=== PATIENT | female | born 1995 | race Caucasian/White ===

== ENCOUNTER → 2017-10-06 | Outpatient (CLI) | payer SELFPAY ==
--- NOTE | 2017-10-06 15:59 | Diagnostic Imaging Report ---
PROCEDURE: US PELVIC (NON OB) TECHNIQUE: Multiple real-time grayscale images were obtained over the pelvis in various projections transabdominally. INDICATION: Pelvic pain. FINDINGS: The uterus measures 8.2 x 4.9 x 3.3 cm. Endometrium is 7 mm in thickness. No myometrial mass is identified. Right ovary measures 4.1 x 3.0 x 2.4 cm and the left ovary measures 4.4 x 2.3 x 3.2 cm. The left ovary does contain a 2.8 cm cyst. Trace free fluid is identified. Blood flow to both ovaries is seen. IMPRESSION: 2.8 cm left ovarian cyst. The study is otherwise unremarkable. Dictated by: Dictated on workstation # [id number]
== END ==
LOC: RAD 14:53
PROVIDERS: ATTEND Nurse Practitioner Primary Care
DX: N83.202 Unspecified ovarian cyst, left side (principal)
CPT/HCPCS: 76856

== ENCOUNTER 2018-03-02 18:11 | Emergency (ER) | payer SELFPAY ==
[~2018-03-02] VITALS: Ht 170.2 cm; Wt 77.1 kg
--- OUTSIDE RECORDS SUMMARY | 2018-03-02 18:28 | XMS REPORT ---
Author Author EARLENE SOLITARIO Organization [facility] Address [address] [place] [address] Care Team Providers Care Oceanography Professor Name Role Phone EARLENE SOLITARIO Unavailable PROBLEMS Type Condition ICD9-CM Code QGA08-LV Code Onset Dates Condition Status SNOMED Code Problem Abnormal menses N92.6 Active 993828845 Problem Irregular menstrual cycle N92.6 Active 25623567 Problem Mild episode of recurrent major depressive disorder F33.0 Active 787225591 Problem Dysthymic disorder F34.1 Active 76419914 ALLERGIES No Information ENCOUNTERS Encounter Location Date Diagnosis [facility] [address] [address] Jan, [facility] [address] [address] Jan, [facility] [address] [address] Jan, [facility] [address] [place] [id number] [place] [address] Jan, Mild episode of recurrent major depressive disorder F33.0 and Abnormal menses N92.6 [facility] [address] [place] [id number] [place] [address] 9030 Nov, Mild episode of recurrent major depressive disorder F33.0 [facility] [address] [address] Oct, Abnormal pelvic ultrasound R93.8 [facility] [address] [address] Oct, Pelvic pain R10.2 and Irregular menstrual cycle N92.6 [facility] [address] [place] [address] 30 Aug, 2017 Mild episode of recurrent major depressive disorder F33.0 [place] [address] [address] 16 Aug, 2017 Dysthymic disorder F34.1 [facility] [place] [address] [address] May, Ear pain, left H92.02 ; Vertigo R42 and Disorder of left eustachian tube H69.92 [place] [address] [address] 13 Apr, 2017 Encounter for Nexplanon removal Z30.46 [facility] [place] [address] [address] 02 Jan, 2017 Candidiasis of female genitalia B37.3 and Nausea R11.0 [place] [address] [address] 04 Oct, 2016 Epigastric pain R10.13 and Dysthymic disorder F34.1 [place] [address] [address] Jan, Dental examination Z01.20 [place] [address] [address] 08 Feb, 2016 Nexplanon insertion Z30.017 [facility] IN [place] [address] [address] 07 Jan, 2016 Enlarged lymph nodes R59.9 [place] [address] [address] Dec, Dysthymic disorder F34.1 [place] [address] [address] 20 Dec, 2015 Encounter for contraceptive management, unspecified Z30.9 ; Easy bruising R23.8 ; Screening for STD sexually transmitted disease Z11.3 and Well woman exam (no gynecological exam) Z00.00 [place] [address] [place] [address] 0[address] Dec, Dysthymic disorder F34.1 [place] [address] [place] [id number] [place] [address]23- 8894 Dec, Dysthymic disorder F34.1 [place] [address] [place] [id number] [place] [address] 16092- 0094 20 Nov, 2015 Dysthymic disorder F34.1 [place] [address] [place] [id number] [place] [address]40- 4114 13 Nov, 2015 Encounter to establish care Z76.89 ; Depression, unspecified depression type F32.9 ; Nightmares F51.5 ; Tooth pain K08.8 and High risk medication use Z79.899 [place] [address] [place] [id number] [place] [address] 64259- 2608 Nov, Dysthymic disorder F34.1 [place] [address] [place] [id number] [place] [address] 8[address]27- 0617 Oct, Dysthymic disorder F34.1 [place] [address] [place] [id number] [place] [address] 71473- 5772 Oct, Dysthymic disorder F34.1 [facility] [address] [place] [id number] [place] [address] Apr, Sore throat J02.9 and Generalized skin eruption due to drugs and medicaments taken internally L27.0 [facility] [address] [place] [id number] [place] [address] Apr, Swollen lymph nodes R59.9 ; Mononucleosis B27.90 and Strep pharyngitis J02.0 [facility] [address] [place] [id number] [place] [address] 10054 [address]5624 20 Apr, 2015 Acute pharyngitis J02.9 and Acute streptococcal pharyngitis J02.0 [place] [address] [place] [id number] [place] [id number]- 8227 Jan, Infection of skin of right ear lobe H60.01 IMMUNIZATIONS No Known Immunizations SOCIAL HISTORY Never Assessed REASON FOR VISIT f/uKalani cid ma PLAN OF CARE Activity Details Follow Up prn Reason: VITAL SIGNS Height 65.5 in 2018-01-26 Weight 179.6 lbs 2018-01-26 Heart Rate 95 bpm 2018-01-26 Respiratory Rate 20 2018-01-26 BMI 29.43 kg/m2 2018-01-26 Blood pressure systolic 98 mmHg 2018-01-26 Blood pressure diastolic 52 mmHg 2018-01-26 MEDICATIONS Medication Instructions Dosage Frequency Start Date End Date Duration Status 28-0.8 MG Orally Once a day 1 tablet 24h 30 day(s) Active RESULTS Name Result Date Reference Range TEST, URINE (IN HOUSE) 2018-01-26 RESULTS POSITIVE Lot # [id number] Control + Exp date 01 Aug 2019 PROCEDURES Procedure Date Ordered Result Body Site URINE TEST Jan 26, 2018 INSTRUCTIONS MEDICATIONS ADMINISTERED No Known Medications MEDICAL (GENERAL) HISTORY Type Description Date Medical History Asthma, exercise induced Medical History Multiple Suicide attempts. Last was 09/03/17 OD on Benadryl, Aleve and Zoloft. Voluntary admission to [facility] for THC Medical History Self harm by cutting Medical History Depression Surgical History No know Surgical history [facility]
--- OUTSIDE RECORDS SUMMARY | 2018-03-02 18:29 | XMS REPORT ---
Author Author MAI CAROLINA Organization [facility] Address [address] [place] [address] Care Team Providers Care Pipe Fitter Marine Name Role Phone MAI CAROLINA Unavailable PROBLEMS Type Condition ICD9-CM Code EOD64-IL Code Onset Dates Condition Status SNOMED Code Problem Abnormal menses N92.6 Active 795300042 Problem Irregular menstrual cycle N92.6 Active 92605758 Problem Mild episode of recurrent major depressive disorder F33.0 Active 560425686 Problem Dysthymic disorder F34.1 Active 75162441 ALLERGIES Substance Reaction Event Type Date Status Zithromax hives Drug Allergy Jan, Active ENCOUNTERS Encounter Location Date Diagnosis [facility] [address] [place] [id number] [place] [address] Jan, [facility] [address] [address] Jan, [facility] [address] [address] Jan, [facility] [address] [place] [id number] [place] [address]- 55[address] Jan, Mild episode of recurrent major depressive disorder F33.0 and Abnormal menses N92.6 [facility] [address] [place] [id number] [place] [address] 81501- 5409 Nov, Mild episode of recurrent major depressive disorder F33.0 [facility] [address] [address] Oct, Abnormal pelvic ultrasound R93.8 [facility] [address] [place] [id number] [place] [address] 32194- 3398 Oct, Pelvic pain R10.2 and Irregular menstrual cycle N92.6 [place] [address] [place] [id number] [place] [address]30- 38[address] Aug, Mild episode of recurrent major depressive disorder F33.0 [place] [address] [address] Aug, Dysthymic disorder F34.1 [facility] WALK IN [place] [address] [address] May, Ear pain, left H92.02 ; Vertigo R42 and Disorder of left eustachian tube H69.92 [place] [address] [address] 4[address] 13 Apr, 2017 Encounter for Nexplanon removal Z30.46 [facility] WALK IN [address] [address] Jan, Candidiasis of female genitalia B37.3 and Nausea R11.0 [place] [address] 8[address]86- 5687 Oct, Epigastric pain R10.13 and Dysthymic disorder F34.1 [place] [address] 36[address]- 6[address] Jan, Dental examination Z01.[address] [address]- [address] Jan, Nexplanon insertion Z30.017 [facility]ALK [place] [address] [address] Jan, Enlarged lymph nodes R59.9 [place] [address] 458[address]- 3[address] Dec, Dysthymic disorder F34.1 [place] [address] 86[address]- [address] Dec, Encounter for contraceptive management, unspecified Z30.9 ; Easy bruising R23.8 ; Screening for STD sexually transmitted disease Z11.3 and Well woman exam (no gynecological exam) Z00.00 [place] [address] [place] [id number] [place] [address] 39763- 2860 Dec, Dysthymic disorder F34.1 [place] [address] [place] [id number] [place] [address] 01776- 9424 12 Dec, 2015 Dysthymic disorder F34.1 [place] [address] [address]- [address] Nov, Dysthymic disorder F34.1 [place] [address] [place] [id number] [place] [address] 92998- 8581 13 Nov, 2015 Encounter to establish care Z76.89 ; Depression, unspecified depression type F32.9 ; Nightmares F51.5 ; Tooth pain K08.8 and High risk medication use Z79.899 [place] [address] 013[address]- 7881 Nov, Dysthymic disorder F34.1 [place] [address] [place] [id number] [place] [address] 82586- 5643 Oct, Dysthymic disorder F34.1 [place] [address] [place] [id number] [place] [address] 72750- 6994 Oct, Dysthymic disorder F34.1 [facility] [address] [place] [id number] [place] [address] 26962 -[address]97 Apr, Sore throat J02.9 and Generalized skin eruption due to drugs and medicaments taken internally L27.0 [facility] [address] [place] [id number] [place] [address]0202 Apr, Swollen lymph nodes R59.9 ; Mononucleosis B27.90 and Strep pharyngitis J02.0 [facility] [address] [place] [id number] [place] [address] 20 Apr, 2015 Acute pharyngitis J02.9 and Acute streptococcal pharyngitis J02.0 [facility] [address] [facility] [id number] [place] [address] Jan, Infection of skin of right ear lobe H60.01 IMMUNIZATIONS No Known Immunizations SOCIAL HISTORY Never Assessed REASON FOR VISIT PLAN OF CARE VITAL SIGNS MEDICATIONS Medication Instructions Dosage Frequency Start Date End Date Duration Status 28-0.8 MG Orally Once a day 1 tablet 24h 30 day(s) Active RESULTS No Results PROCEDURES No Known procedures INSTRUCTIONS MEDICATIONS ADMINISTERED No Known Medications MEDICAL (GENERAL) HISTORY Type Description Date Medical History Asthma, exercise induced Medical History Multiple Suicide attempts. Last was 09/03/17 OD on Benadryl, Aleve and Zoloft. Voluntary admission to [facility] for THC Medical History Self harm by cutting Medical History Depression Surgical History No know Surgical history Hospitalization History inpatient psych [facility] s/p SI 08/2017
--- OUTSIDE RECORDS SUMMARY | 2018-03-02 18:29 | XMS REPORT ---
Author Author EARLENE SOLITARIO Organization [facility] Address [address] [place] [address] Care Team Providers Care Social Psychologist Name Role Phone KASSI EARLENE Unavailable PROBLEMS Type Condition ICD9-CM Code QHQ11-QF Code Onset Dates Condition Status SNOMED Code Problem Irregular menstrual cycle N92.6 Active 02043229 Problem Mild episode of recurrent major depressive disorder F33.0 Active 876742541 Problem Dysthymic disorder F34.1 Active 52076342 ALLERGIES No Information ENCOUNTERS Encounter Location Date Diagnosis [place] [address] [address] Dec, [facility] [address] [address] Nov, Mild episode of recurrent major depressive disorder F33.0 [facility] [address] [address]- [address] Oct, Abnormal pelvic ultrasound R93.8 [place] [address] [place] [id number] [place] [address] 69245- 6436 Oct, Pelvic pain R10.2 and Irregular menstrual cycle N92.6 [facility] [address] [address] Aug, Mild episode of recurrent major depressive disorder F33.0 [place] [address] [address]- 2503 Aug, Dysthymic disorder F34.1 [facility] [address] [place] [id number] [place] [address] May, Ear pain, left H92.02 ; Vertigo R42 and Disorder of left eustachian tube H69.92 [place] [address] [place] [id number] [place] [address] 93639- 5197 13 Apr, 2017 Encounter for Nexplanon removal Z30.46 [facility] [address] [address] 02 Jan, 2017 Candidiasis of female genitalia B37.3 and Nausea R11.0 [place] [address] 21050- 5965 Oct, Epigastric pain R10.13 and Dysthymic disorder F34.1 [place] [address] 09863- 4735 Jan, Dental examination Z01.20 [place] [address] [address] 28[address] Jan, Nexplanon insertion Z30.017 [facility] [address] [address] Jan, Enlarged lymph nodes R59.9 [place] [address] 18200- 1082 Dec, Dysthymic disorder F34.1 [place] [address] 02257- [address]87 Dec, Encounter for contraceptive management, unspecified Z30.9 ; Easy bruising R23.8 ; Screening for STD sexually transmitted disease Z11.3 and Well woman exam (no gynecological exam) Z00.00 [place] [address] [place] [id number] [place] [address] 85282- 5119 Dec, Dysthymic disorder F34.1 [place] [address] 7[address]- 2729 Dec, Dysthymic disorder F34.1 [place] [address] [place] [id number] [place] [address] 80494- 3805 Nov, Dysthymic disorder F34.1 [place] [address] [place] [id number] [place] [address] 43136- 3988 13 Nov, 2015 Encounter to establish care Z76.89 ; Depression, unspecified depression type F32.9 ; Nightmares F51.5 ; Tooth pain K08.8 and High risk medication use Z79.899 [place] [address] [place] [id number] [place] [address] 43453- 3073 13 Nov, 2015 Dysthymic disorder F34.1 [place] [address] [place] [id number] [place] [address] 08931- 5654 Oct, Dysthymic disorder F34.1 [place] [address] 956[address]- 2969 Oct, Dysthymic disorder F34.1 [facility] [place] [address] [place] [id number] [place] [address] 40538 -2418 Apr, Sore throat J02.9 and Generalized skin eruption due to drugs and medicaments taken internally L27.0 [facility]ALK IN [place] [address] [address] [place] [id number] [place] [address]6727 -4160 Apr, Swollen lymph nodes R59.9 ; Mononucleosis B27.90 and Strep pharyngitis J02.0 [facility] [place] [address] [address] [place] [id number] [place] [address] 27198 -9315 Apr, Acute pharyngitis J02.9 and Acute streptococcal pharyngitis J02.0 [place] [address] [place] [id number] [place] [address] 17853- 1587 Jan, Infection of skin of right ear lobe H60.01 IMMUNIZATIONS No Known Immunizations SOCIAL HISTORY Never Assessed REASON FOR VISIT f/kevin Cazares RN PLAN OF CARE Activity Details Follow Up 4 Weeks Reason: VITAL SIGNS Height 65.5 in 2017-11-10 Weight 175.3 lbs 2017-11-10 Heart Rate 80 bpm 2017-11-10 Respiratory Rate 20 2017-11-10 BMI 28.72 kg/m2 2017-11-10 Blood pressure systolic 108 mmHg 2017-11-10 Blood pressure diastolic 60 mmHg 2017-11-10 MEDICATIONS Medication Instructions Dosage Frequency Start Date End Date Duration Status Zoloft 100 MG Orally Once a day 1 tablet 24h 13 Nov, 2015 30 days Active Flonase 50 MCG/ACT Nasally twice a day 1 spray in each nostril 12h 30 May, 2017 7 days Active RESULTS No Results PROCEDURES No Known procedures INSTRUCTIONS MEDICATIONS ADMINISTERED No Known Medications MEDICAL (GENERAL) HISTORY Type Description Date Medical History Asthma, exercise induced Medical History Multiple Suicide attempts. Last was 09/03/17 OD on Benadryl, Aleve and Zoloft. Voluntary admission to [facility] for THC Medical History Self harm by cutting Medical History Depression Hospitalization History inpatient psych [facility] s/p SI 08/2017
--- OUTSIDE RECORDS SUMMARY | 2018-03-02 18:29 | XMS REPORT ---
Author Author SIN SILVERMAN Organization [facility] Address [address] [place] [address] Care Team Providers Care Fur Cutting Machine Operator Name Role Phone SIN SILVERMAN Unavailable PROBLEMS Type Condition ICD9-CM Code HLO80-NF Code Onset Dates Condition Status SNOMED Code Problem Abnormal menses N92.6 Active 302073857 Problem Irregular menstrual cycle N92.6 Active 47386597 Problem Mild episode of recurrent major depressive disorder F33.0 Active 708989871 Problem Dysthymic disorder F34.1 Active 91464040 ALLERGIES No Information ENCOUNTERS Encounter Location Date Diagnosis [facility] [address] [address] Jan, [facility] [address] [address]69 Jan, [facility] [address] [address] Jan, [facility] [address] [place] [id number] [place] [address] 66703- 4866 Jan, Mild episode of recurrent major depressive disorder F33.0 and Abnormal menses N92.6 [facility] [address] [place] [id number] [place] [address] 70271- 1830 Nov, Mild episode of recurrent major depressive disorder F33.0 [facility] [address] [place] [id number] [place] [address] 31020- 7849 Oct, Abnormal pelvic ultrasound R93.8 [facility] [address] [address]- 6[address] Oct, Pelvic pain R10.2 and Irregular menstrual cycle N92.6 [facility] [address] 53351- [address] 30 Aug, 2017 Mild episode of recurrent major depressive disorder F33.0 [place] [address] 83460- 4913 16 Aug, 2017 Dysthymic disorder F34.1 [facility] [place] [address] 49[address] 30 May, 2017 Ear pain, left H92.02 ; Vertigo R42 and Disorder of left eustachian tube H69.92 [place] [address] 65270- 1526 13 Apr, 2017 Encounter for Nexplanon removal Z30.46 [facility] [place] [address] 90146 -9859 02 Jan, 2017 Candidiasis of female genitalia B37.3 and Nausea R11.0 [place] [address] 38131- 9428 04 Oct, 2016 Epigastric pain R10.13 and Dysthymic disorder F34.1 [place] [address] 97029- 9142 Jan, Dental examination Z01.20 [place] [address] 90554- 5973 08 Feb, 2016 Nexplanon insertion Z30.017 [facility] IN [place] [address] 72668 -5746 07 Jan, 2016 Enlarged lymph nodes R59.9 [place] [address] 31087- 5315 Dec, Dysthymic disorder F34.1 [place] [address] 85762- 2544 Dec, Encounter for contraceptive management, unspecified Z30.9 ; Easy bruising R23.8 ; Screening for STD sexually transmitted disease Z11.3 and Well woman exam (no gynecological exam) Z00.00 [place] [address] [place] [address] 66395- 0665 Dec, Dysthymic disorder F34.1 [place] [address] [place] [id number] [place] [address] 11491- 4896 Dec, Dysthymic disorder F34.1 [place] [address] [place] [id number] [place] [address] 72666- 8371 Nov, Dysthymic disorder F34.1 [place] [address] [place] [id number] [place] [address] 38404- 0478 13 Nov, 2015 Encounter to establish care Z76.89 ; Depression, unspecified depression type F32.9 ; Nightmares F51.5 ; Tooth pain K08.8 and High risk medication use Z79.899 [place] [address] [place] [id number] [place] [address] 07211- 9928 Nov, Dysthymic disorder F34.1 [place] [address] [place] [id number] [place] [address] 77666- 4897 Oct, Dysthymic disorder F34.1 [place] [address] [place] [id number] [place] [address] 50400- 1572 Oct, Dysthymic disorder F34.1 [facility] [place] [address] [place] [id number] [place] [address] 02068 -2048 Apr, Sore throat J02.9 and Generalized skin eruption due to drugs and medicaments taken internally L27.0 [facility] [address] [place] [id number] [place] [address]15 -8788 Apr, Swollen lymph nodes R59.9 ; Mononucleosis B27.90 and Strep pharyngitis J02.0 [facility] [address] [place] [id number] [place] [address] 74931 -0699 Apr, Acute pharyngitis J02.9 and Acute streptococcal pharyngitis J02.0 [place] [address] [place] [id number] [place] [address], [place] [address]- [address]83 Jan, Infection of skin of right ear lobe H60.01 IMMUNIZATIONS No Known Immunizations SOCIAL HISTORY Never Assessed REASON FOR VISIT Triage JStrasserRN PLAN OF CARE VITAL SIGNS Height 65.5 in 2018-02-01 Weight 177.6 lbs 2018-02-01 Temperature 97.9 degrees Fahrenheit 2018-02-01 Heart Rate 80 bpm 2018-02-01 Respiratory Rate 20 2018-02-01 BMI 29.10 kg/m2 2018-02-01 Blood pressure systolic 110 mmHg 2018-02-01 Blood pressure diastolic 68 mmHg 2018-02-01 MEDICATIONS Medication Instructions Dosage Frequency Start Date [...] Benadryl, Aleve and Zoloft. Voluntary admission to [facility] for THC Medical History Self harm by cutting Medical History Depression Surgical History No know Surgical history Hospitalization History inpatient psych [facility] s/p SI 08/2017
--- OUTSIDE RECORDS SUMMARY | 2018-03-02 18:29 | XMS REPORT ---
Author Author MAI CAROLINA Organization [facility] Address [address] [place] [address] Care Team Providers Care Combination Machine Tool Operator Name Role Phone MAI CAROLINA Unavailable PROBLEMS Type Condition ICD9-CM Code EXL68-SK Code Onset Dates Condition Status SNOMED Code Problem Abnormal menses N92.6 Active 444901547 Problem Irregular menstrual cycle N92.6 Active 49021955 Problem Mild episode of recurrent major depressive disorder F33.0 Active 312116496 Problem Dysthymic disorder F34.1 Active 39991457 ALLERGIES No Information ENCOUNTERS Encounter Location Date Diagnosis [facility] [id number] [place] [address]385[address] 8454 Jan, [facility] [address] [address] Jan, [facility] [address] [address] Jan, [facility] [id number] [place] [address] 12042- 8044 Jan, Mild episode of recurrent major depressive disorder F33.0 and Abnormal menses N92.6 [facility] [id number] [place] [address] 94808- 1620 Nov, Mild episode of recurrent major depressive disorder F33.0 [facility] [id number] [place] [address] 10036- 7760 Oct, Abnormal pelvic ultrasound R93.8 [facility] [id number] [place] [address] 37098- 5550 Oct, Pelvic pain R10.2 and Irregular menstrual cycle N92.6 [facility] [address] 20323[address] 4412 Aug, Mild episode of recurrent major depressive disorder F33.0 [place] [address] 6[address]96[address] 16 Aug, 2017 Dysthymic disorder F34.1 [facility] [place] [address] [address] May, Ear pain, left H92.02 ; Vertigo R42 and Disorder of left eustachian tube H69.92 [place] [address] 11950- 8931 13 Apr, 2017 Encounter for Nexplanon removal Z30.46 [facility] [address] [address]68 02 Jan, 2017 Candidiasis of female genitalia B37.3 and Nausea R11.[address] [address] 04 Oct, 2016 Epigastric pain R10.13 and Dysthymic disorder F34.1 [place] [address] 96084- 4407 26 Feb, 2016 Dental examination Z01.20 [place] [address] 67476- [address]34 08 Feb, 2016 Nexplanon insertion Z30.[address] [facility] [place] [address] 97942 [address]9038 07 Jan, 2016 Enlarged lymph nodes R59.9 [place] [address] 63675- 4617 Dec, Dysthymic disorder F34.1 [place] [address] 71050[address] 7905 Dec, Encounter for contraceptive management, unspecified Z30.9 ; Easy bruising R23.8 ; Screening for STD sexually transmitted disease Z11.3 and Well woman exam (no gynecological exam) Z00.00 [place] [address] [address] Dec, Dysthymic disorder F34.1 [place] [id number] [place] [address] 70265- 0030 Dec, Dysthymic disorder F34.1 [place] [id number] [place] [address] 97409- 4760 20 Nov, 2015 Dysthymic disorder F34.1 [place] [id number] [place] [address] 83348- 2904 13 Nov, 2015 Encounter to establish care Z76.89 ; Depression, unspecified depression type F32.9 ; Nightmares F51.5 ; Tooth pain K08.8 and High risk medication use Z79.899 [place] [id number] [place] [address] 47613- 1161 Nov, Dysthymic disorder F34.1 [place] [id number] [place] [address] 49663- 1127 Oct, Dysthymic disorder F34.1 [place] [address] [id number] [place] [address] 71702- 6969 Oct, Dysthymic disorder F34.1 [facility] [id number] [place] [address] 05533 -0346 Apr, Sore throat J02.9 and Generalized skin eruption due to drugs and medicaments taken internally L27.0 [facility] [id number] [place] [address] 43773 -1324 Apr, Swollen lymph nodes R59.9 ; Mononucleosis B27.90 and Strep pharyngitis J02.0 [facility] [address] [place] [address] 41611 -3529 Apr, Acute pharyngitis J02.9 and Acute streptococcal pharyngitis J02.0 [place] [id number] [place] [address] 99426- 2558 Jan, Infection of skin of right ear lobe H60.01 IMMUNIZATIONS No Known Immunizations SOCIAL HISTORY Never Assessed REASON FOR VISIT OB HX PLAN OF CARE VITAL SIGNS MEDICATIONS No Known Medications RESULTS No Results PROCEDURES No Known procedures INSTRUCTIONS MEDICATIONS ADMINISTERED No Known Medications MEDICAL (GENERAL) HISTORY Type Description Date Medical History Asthma, exercise induced Medical History Multiple Suicide attempts. Last was 09/03/17 OD on Benadryl, Aleve and Zoloft. Voluntary admission to [facility] for THC Medical History Self harm by cutting Medical History Depression Surgical History No know Surgical history Hospitalization History inpatient psych [facility] s/p SI 08/2017
--- OUTSIDE RECORDS SUMMARY | 2018-03-02 18:29 | XMS REPORT ---
Author Author MARY DE LUNA Organization [facility] Address [address] [place] [address] Care Team Providers Care Photo Intern Name Role Phone MARY DE LUNA Unavailable PROBLEMS Type Condition ICD9-CM Code TKP64-DL Code Onset Dates Condition Status SNOMED Code Problem Irregular menstrual cycle N92.6 Active 66646290 Problem Mild episode of recurrent major depressive disorder F33.0 Active 536517729 Problem Dysthymic disorder F34.1 Active 90494953 ALLERGIES No Information ENCOUNTERS Encounter Location Date Diagnosis [place] [id number] [place] [id number] [place] [address] 13211- 7486 Dec, [facility] [id number] [place] [address] 29732- 6385 Nov, Mild episode of recurrent major depressive disorder F33.0 [facility] [id number] [place] [address] 18449- 8929 Oct, Abnormal pelvic ultrasound R93.8 [place] [address] [place] [id number] [place] [address] 51798- 9834 Oct, Pelvic pain R10.2 and Irregular menstrual cycle N92.6 [facility] [id number] [place] [address] 14359- 9906 Aug, Mild episode of recurrent major depressive disorder F33.0 [facility] [id number] [place] [address] 61844- 1709 Aug, Dysthymic disorder F34.1 [facility] [address] [place] [address] 37743 -6135 May, Ear pain, left H92.02 ; Vertigo R42 and Disorder of left eustachian tube H69.92 [place] [address] [place] [id number] [place] [address] 35466- 1348 13 Apr, 2017 Encounter for Nexplanon removal Z30.46 [facility] [address] 6[address]2309 02 Jan, 2017 Candidiasis of female genitalia B37.3 and Nausea R11.0 [place] [address] 80795- 0374 Oct, Epigastric pain R10.13 and Dysthymic disorder F34.1 [place] [address] 40845- 0193 Jan, Dental examination Z01.20 [place] [address] 00558- 1306 Jan, Nexplanon insertion Z30.017 [facility] [address] 31428 [address]8374 Jan, Enlarged lymph nodes R59.9 [place] [address] 77254- 3112 Dec, Dysthymic disorder F34.1 [place] [address] 31667- 3490 Dec, Encounter for contraceptive management, unspecified Z30.9 ; Easy bruising R23.8 ; Screening for STD sexually transmitted disease Z11.3 and Well woman exam (no gynecological exam) Z00.00 [place] [address] [address] [id number] [place] [address] 75109- 2311 Dec, Dysthymic disorder F34.1 [place] [address] 66254- 6934 Dec, Dysthymic disorder F34.1 [place] [address] [place] [id number] [place] [address] 56096- 9082 Nov, Dysthymic disorder F34.1 [place] [address] [place] [address] [id number] [place] [address] 66898- 9031 13 Nov, 2015 Encounter to establish care Z76.89 ; Depression, unspecified depression type F32.9 ; Nightmares F51.5 ; Tooth pain K08.8 and High risk medication use Z79.899 [place] [address] [place] [id number] [place] [address] 77740- 3856 13 Nov, 2015 Dysthymic disorder F34.1 [place] [address] [place] [id number] [place] [address] 13497- 4994 Oct, Dysthymic disorder F34.1 [place] [address] 38560- 0438 Oct, Dysthymic disorder F34.1 [facility] [place] [address] [place] [address] [id number] [place] [address] 87040 -9879 Apr, Sore throat J02.9 and Generalized skin eruption due to drugs and medicaments taken internally L27.0 [facility] [place] [address] [id number] [place] [address] 95170 -8110 Apr, Swollen lymph nodes R59.9 ; Mononucleosis B27.90 and Strep pharyngitis J02.0 [facility] [place] [address] [place] [address] [id number] [place] [address] 03919 -2506 Apr, Acute pharyngitis J02.9 and Acute streptococcal pharyngitis J02.0 [place] [address] [place] [id number] [place] [address] 80529- 6925 Jan, Infection of skin of right ear lobe H60.01 IMMUNIZATIONS No Known Immunizations SOCIAL HISTORY Never Assessed REASON FOR VISIT Follow up US PLAN OF CARE VITAL SIGNS MEDICATIONS Unknown Medications RESULTS No Results PROCEDURES No Known procedures INSTRUCTIONS MEDICATIONS ADMINISTERED No Known Medications MEDICAL (GENERAL) HISTORY Type Description Date Medical History Asthma, exercise induced Medical History Multiple Suicide attempts. Last was 09/03/17 OD on Benadryl, Aleve and Zoloft. Voluntary admission to [facility] for THC Medical History Self harm by cutting Medical History Depression Hospitalization History inpatient psych [facility] s/p SI 08/2017
--- OUTSIDE RECORDS SUMMARY | 2018-03-02 18:29 | XMS REPORT ---
Author Author MARY DE LUNA Organization [facility] Address [address] [place] [address] Care Team Providers Care Bone Density Technician Name Role Phone MARY DE LUNA Unavailable PROBLEMS Type Condition ICD9-CM Code [id number] Code Onset Dates Condition Status SNOMED Code Problem Irregular menstrual cycle N92.6 Active 65462631 Problem Mild episode of recurrent major depressive disorder F33.0 Active 909244193 Problem Dysthymic disorder F34.1 Active 94716942 ALLERGIES Substance Reaction Event Type Date Status Zithromax hives Drug Allergy Oct, Active ENCOUNTERS Encounter Location Date Diagnosis [facility] [address] [place] [place] [id number] [place] [address] 44897- 9921 Dec, [facility] [address] [id number] [place] [address] 19403- 4744 Nov, Mild episode of recurrent major depressive disorder F33.0 [facility] [address] [id number] [place] [address] 97171- 5046 Oct, Abnormal pelvic ultrasound R93.8 [facility] [address] [id number] [place] [address] 04641- 0913 Oct, Pelvic pain R10.2 and Irregular menstrual cycle N92.6 [facility] [address] [id number] [place] [address] 68376- 2589 Aug, Mild episode of recurrent major depressive disorder F33.0 [facility] [address] [id number] [place] [address] 90100- 1959 Aug, Dysthymic disorder F34.1 [facility] [address] [place] [address] 61519 -3139 May, Ear pain, left H92.02 ; Vertigo R42 and Disorder of left eustachian tube H69.92 [place] [address] 84468- 3331 13 Apr, 2017 Encounter for Nexplanon removal Z30.46 [facility] [address] 80408 -4860 Jan, Candidiasis of female genitalia B37.3 and Nausea R11.0 [place] [address] 86093- 0682 Oct, Epigastric pain R10.13 and Dysthymic disorder F34.1 [place] [address] 59838- 7737 Jan, Dental examination Z01.20 [place] [address] 71195- 4956 Jan, Nexplanon insertion Z30.017 [facility] [place] [address] 29267 -4567 Jan, Enlarged lymph nodes R59.9 [place] [address] 00070- 9313 Dec, Dysthymic disorder F34.1 [place] [address] 98411- 5016 Dec, Encounter for contraceptive management, unspecified Z30.9 ; Easy bruising R23.8 ; Screening for STD sexually transmitted disease Z11.3 and Well woman exam (no gynecological exam) Z00.00 [place] [address] 73828- 1039 Dec, Dysthymic disorder F34.1 [place] [address] 58547- 3798 Dec, Dysthymic disorder F34.1 [place] [address] 27678- 0147 Nov, Dysthymic disorder F34.1 [facility] [address] [place] [id number] [place] [address] 74938- 7986 Nov, Encounter to establish care Z76.89 ; Depression, unspecified depression type F32.9 ; Nightmares F51.5 ; Tooth pain K08.8 and High risk medication use Z79.899 [place] [address] 88456- 5689 Nov, Dysthymic disorder F34.1 [place] [address] 22661- 5104 Oct, Dysthymic disorder F34.1 [place] [address] 23937- 5458 Oct, Dysthymic disorder F34.1 [facility] [address] [place] [id number] [place] [address] 83457 -1366 Apr, Sore throat J02.9 and Generalized skin eruption due to drugs and medicaments taken internally L27.0 [facility] [address] [id number] [place] [address] 73416 -3148 Apr, Swollen lymph nodes R59.9 ; Mononucleosis B27.90 and Strep pharyngitis J02.0 [facility] [address] [place] [id number] [place] [address] 08841 -1005 Apr, Acute pharyngitis J02.9 and Acute streptococcal pharyngitis J02.0 [facility] [address] [place] [id number] [place] [address] 40027- 4769 Jan, Infection of skin of right ear lobe H60.01 IMMUNIZATIONS No Known Immunizations SOCIAL HISTORY Never Assessed REASON FOR VISIT Stomach pain, left lower quadrant, reports has been this way for a few years[facility] Activity Details Follow Up prn Reason: VITAL SIGNS Height 65.5 in 2017-10-02 Weight 169.1 lbs 2017-10-02 Temperature 97.6 degrees Fahrenheit 2017-10-02 Heart Rate 78 bpm 2017-10-02 Respiratory Rate 18 2017-10-02 BMI 27.71 kg/m2 2017-10-02 Blood pressure systolic 102 mmHg 2017-10-02 Blood pressure diastolic 64 mmHg 2017-10-02 MEDICATIONS Medication Instructions Dosage Frequency Start Date End Date Duration Status Zoloft 100 MG Orally Once a day 1 tablet 24h 13 Nov, 2015 30 days Active Flonase 50 MCG/ACT Nasally twice a day 1 spray in each nostril 12h 30 May, 2017 07 days Active RESULTS No Results PROCEDURES Procedure Date Ordered Result Body Site No Charge Oct 02, 2017 URINALYSIS, AUTO, W/O SCOPE Oct 02, 2017 ASSAY THYROID STIM HORMONE Oct 02, 2017 COMPLETE CBC W/AUTO DIFF WBC Oct 02, 2017 VENIPUNCT, ROUTINE* Oct 02, 2017 INSTRUCTIONS MEDICATIONS ADMINISTERED No Known Medications MEDICAL (GENERAL) HISTORY Type Description Date Medical History Asthma, exercise induced Medical History Multiple Suicide attempts. Last was 09/03/17 OD on Benadryl, Aleve and Zoloft. Voluntary admission to [facility] for THC Medical History Self harm by cutting Medical History Depression Hospitalization History inpatient psych [facility] s/p SI 08/2017
--- OUTSIDE RECORDS SUMMARY | 2018-03-02 18:30 | XMS REPORT ---
Author TESSIE Arambula Organization [employer] Address Unknown Phone Unavailable Care Team Providers Care Circus Roustabout Name Role Phone TESSIE BOGGS CP Unavailable Allergies No Known Allergies Problems Problem Type Condition Code Onset Dates Condition Status Assessment Dysthymic disorder F34.1 Active Problem Dysthymic disorder F34.1 Active Medications No Known Medications Procedures Procedure Coding System Code Date Psychotherapy, patient &/family, 30 minutes, established patient CPT-4 07830 Dec 13, 2015 Results No Known Results Summary Purpose [employer] Submission
--- OUTSIDE RECORDS SUMMARY | 2018-03-02 18:30 | XMS REPORT ---
Author Author RENEE SINGH Organization [employer] Address Unknown Phone Unavailable Care Team Providers Care Sawmill Hand Name Role Phone RENEE SINGH CP Unavailable Allergies, Adverse Reactions, Alerts Substance Reaction Event Type Zithromax hives Drug Allergy Problems Problem Type Condition Code Onset Dates Condition Status Assessment Infection of skin of right ear lobe H60.01 Active Medications Medication Code System Code Instructions Start Date End Date Status Dosage Bactrim DS [facility] [address]-34 800-160 MG Orally Twice a day Mar 01, 2015 Mar 11, 2015 1 tablet Bactroban [facility] [address]-78 2 % Externally Three times a day Mar 01, 2015 1 application to affected area Procedures Procedure Coding System Code Date Office Visit, New Pt., Level 3 CPT-4 27543 Mar 01, 2015 ROCEPHIN 1 GM (IM) CPT-4 J0696 Mar 01, 2015 CULTURE BACTERIA ANAEROBIC CPT-4 20441 Mar 01, 2015 THER/PROPH/DIAG INJ, SC/IM CPT-4 95711 Mar 01, 2015 Vital Signs Date/Time: Mar 01, 2015 Temperature 99.3 F BMIPercentile 81.17 % Weight 151.5 lbs Height 65.5 in BMI 24.82 Index Blood Pressure Diastolic 80 mmHg Blood Pressure Systolic 120 mmHg Cardiac Monitoring Heart Rate 88 bpm Wt Percentile 85.27 % Ht Percentile 69.2 % Results No Known Results Summary Purpose [employer] Submission
--- OUTSIDE RECORDS SUMMARY | 2018-03-02 18:30 | XMS REPORT ---
Author Author LATOSHA PAULINO Organization [facility] Address [address] [place] [address] Care Team Providers Care Marketing Programs Specialist Name Role Phone LATOSHA PAULINO Unavailable PROBLEMS Type Condition ICD9-CM Code FKI31-IU Code Onset Dates Condition Status SNOMED Code Problem Dysthymic disorder F34.1 Active 00700113 ALLERGIES Substance Reaction Event Type Date Status Zithromax hives Drug Allergy May, Active ENCOUNTERS Encounter Location Date Diagnosis [address] [address] Aug, [address] 87[address]- 3[address] Aug, Dysthymic disorder F34.1 [facility] [address] [address]61 May, Ear pain, left H92.02 ; Vertigo R42 and Disorder of left eustachian tube H69.[address] 61552- 1408 Apr, Encounter for Nexplanon removal Z30.46 [facility] [address] 237[address] Jan, Candidiasis of female genitalia B37.3 and Nausea R11.[address] 71838- 7659 Oct, Epigastric pain R10.13 and Dysthymic disorder F34.[address] 72082- 1290 Jan, Dental examination Z01.[id number] [place] [address] 97678- 4742 08 Feb, 2016 Nexplanon insertion Z30.017 [facility] [address] [place] [id number] [place] [address] 56405 -5090 Jan, Enlarged lymph nodes R59.9 [facility] [address] [place] [id number] [place] [address] 34924- 8465 Dec, Dysthymic disorder F34.1 [facility] [address] [place] [address] [id number] [place] [address] 39023- 4949 Dec, Encounter for contraceptive management, unspecified Z30.9 ; Easy bruising R23.8 ; Screening for STD sexually transmitted disease Z11.3 and Well woman exam (no gynecological exam) Z00.00 [place] [address] [place] [id number] [place] [address] 58488- 2728 Dec, Dysthymic disorder F34.1 [place] [address] [place] [id number] [place] [address] 75141- 7525 Dec, Dysthymic disorder F34.1 [place] [address] [place] [id number] [place] [address] 25775- 2607 Nov, Dysthymic disorder F34.1 [place] [address] [place] [id number] [place] [address] 17756- 2262 13 Nov, 2015 Encounter to establish care Z76.89 ; Depression, unspecified depression type F32.9 ; Nightmares F51.5 ; Tooth pain K08.8 and High risk medication use Z79.899 [facility] [address] [place] [address] 74176- 1775 Nov, Dysthymic disorder F34.1 [place] [address] [place] [id number] [place] [address] 57554- 9720 Oct, Dysthymic disorder F34.1 [place] [address] [place] [id number] [place] [address] 30932- 5095 Oct, Dysthymic disorder F34.1 [facility] [address] [facility] [id number] [address] Apr, Sore throat J02.9 and Generalized skin eruption due to drugs and medicaments taken internally L27.0 [facility] [address] [place] [id number] [address] Apr, Swollen lymph nodes R59.9 ; Mononucleosis B27.90 and Strep pharyngitis J02.0 [facility] [address] [place] [id number] [address] Apr, Acute pharyngitis J02.9 and Acute streptococcal pharyngitis J02.0 [facility] [address] [id number] [address] Jan, Infection of skin of right ear lobe H60.01 IMMUNIZATIONS No Known Immunizations SOCIAL HISTORY Never Assessed REASON FOR VISIT left ear feels full. when she turns her head...gets dizzy. been like this for a few weeks now. [email or web address] PLAN OF CARE Activity Details Follow Up prn Reason: VITAL SIGNS Height 65.5 in 2017-05-30 Weight 177.6 lbs 2017-05-30 Temperature 97.8 degrees Fahrenheit 2017-05-30 Heart Rate 80 bpm 2017-05-30 Respiratory Rate 20 2017-05-30 BMI 29.10 kg/m2 2017-05-30 Blood pressure systolic 106 mmHg 2017-05-30 Blood pressure diastolic 68 mmHg 2017-05-30 MEDICATIONS Medication Instructions Dosage Frequency Start Date End Date Duration Status Flonase 50 MCG/ACT Nasally twice a day 1 spray in each nostril 12h 30 May, 2017 07 days Active Zoloft 50 mg Orally Once a day 1 tablet 24h 13 Nov, 2015 Active Omeprazole 20 mg Orally Once a day, ac 1 capsule Oct, 30 day( s) Not-Taking RESULTS No Results PROCEDURES No Known procedures INSTRUCTIONS MEDICATIONS ADMINISTERED No Known Medications MEDICAL (GENERAL) HISTORY Type Description Date Medical History Asthma, exercise induced
--- OUTSIDE RECORDS SUMMARY | 2018-03-02 18:30 | XMS REPORT ---
Author TESSIE Arambula Organization [employer] Address Unknown Phone Unavailable Care Team Providers Care Haulage Engine Operator Name Role Phone TESSIE BOGGS CP Unavailable Allergies No Known Allergies Problems Problem Type Condition Code Onset Dates Condition Status Assessment Dysthymic disorder F34.1 Active Problem Dysthymic disorder F34.1 Active Medications No Known Medications Procedures Procedure Coding System Code Date Psychotherapy, patient &/family, 45 minutes, established patient CPT-4 11018 Oct 30, 2015 Results No Known Results Summary Purpose [employer] Submission
--- OUTSIDE RECORDS SUMMARY | 2018-03-02 18:30 | XMS REPORT ---
Author Author TESSIE BOGGS Organization [employer] Address Unknown Phone Unavailable Care Team Providers Care Spool Salvager Name Role Phone TESSIE BOGGS CP Unavailable Allergies No Known Allergies Problems Problem Type Condition Code Onset Dates Condition Status Assessment Dysthymic disorder F34.1 Active Problem Dysthymic disorder F34.1 Active Medications No Known Medications Procedures Procedure Coding System Code Date Psychotherapy, patient &/family, 45 minutes, established patient CPT-4 22816 Oct 17, 2015 Results No Known Results Summary Purpose eClinicalWorks Submission
--- OUTSIDE RECORDS SUMMARY | 2018-03-02 18:30 | XMS REPORT ---
Author Author TESSIE BOGGS Organization [facility] Address [address] [place] [address] Care Team Providers Care Manager Operations And Procurement Name Role Phone TESSIE BOGGS Unavailable PROBLEMS Type Condition ICD9-CM Code EVF26-DM Code Onset Dates Condition Status SNOMED Code Problem Dysthymic disorder F34.1 Active 97291383 Assessment Dysthymic disorder F34.1 Nov, Active 56822474 ALLERGIES No Known Allergies SOCIAL HISTORY No smoking Hx information available PLAN OF CARE VITAL SIGNS MEDICATIONS No Known Medications RESULTS No Results PROCEDURES Procedure Date Ordered Related Diagnosis Body Site Psychotherapy, patient &/family, 30 minutes, established patient Nov 14, 2015 IMMUNIZATIONS No Known Immunizations
--- OUTSIDE RECORDS SUMMARY | 2018-03-02 18:30 | XMS REPORT ---
Author Author SIN SILVERMAN Organization [employer] Address Unknown Phone Unavailable Care Team Providers Care Needle Loom Tender Name Role Phone SIN SILVERMAN Unavailable Allergies No Known Allergies Problems Problem Type Condition Code Onset Dates Condition Status Assessment Dysthymic disorder F34.1 Active Problem Dysthymic disorder F34.1 Active Medications Medication Code System Code Instructions Start Date End Date Status Dosage Zoloft [facility] [address]-26 50 mg Orally Once a day Nov 14, 2015 1 tablet Results No Known Results Summary Purpose eClinicalWorks Submission
--- OUTSIDE RECORDS SUMMARY | 2018-03-02 18:30 | XMS REPORT ---
Author TESSIE Arambula Organization [employer] Address Unknown Phone Unavailable Care Team Providers Care Reinforced Concrete Inspector Name Role Phone TESSIE BOGGS CP Unavailable Allergies No Known Allergies Problems Problem Type Condition Code Onset Dates Condition Status Assessment Dysthymic disorder F34.1 Active Problem Dysthymic disorder F34.1 Active Medications No Known Medications Procedures Procedure Coding System Code Date Psychotherapy, patient &/family, 30 minutes, established patient CPT-4 00004 Dec 27, 2015 Results No Known Results Summary Purpose eClinicalWorks Submission
--- OUTSIDE RECORDS SUMMARY | 2018-03-02 18:30 | XMS REPORT ---
Author Author EARLENE SOLITARIO Organization [facility] Address [address] [place] [address] Care Team Providers Care History Department Chair Name Role Phone EARLENE SOLITARIO Unavailable PROBLEMS Type Condition ICD9-CM Code MXK16-PO Code Onset Dates Condition Status SNOMED Code Problem Irregular menstrual cycle N92.6 Active 23712485 Problem Mild episode of recurrent major depressive disorder F33.0 Active 603670094 Problem Dysthymic disorder F34.1 Active 56403995 ALLERGIES Substance Reaction Event Type Date Status Zithromax hives Drug Allergy Aug, Active ENCOUNTERS Encounter Location Date Diagnosis [facility] [address] [address] Dec, [facility] [address] [place] [id number] [place] [address] Nov, Mild episode of recurrent major depressive disorder F33.0 [facility] [id number] [place] [address] Oct, Abnormal pelvic ultrasound R93.8 [facility] [id number] [place] [address] Oct, Pelvic pain R10.2 and Irregular menstrual cycle N92.6 [facility] [id number] [place] [address] Aug, Mild episode of recurrent major depressive disorder F33.0 [facility] [id number] [place] [address] Aug, Dysthymic disorder F34.1 [facility] [id number] [place] [address] May, Ear pain, left H92.02 ; Vertigo R42 and Disorder of left eustachian tube H69.92 [place] [id number] [place] [address] 13 Apr, 2017 Encounter for Nexplanon removal Z30.46 [facility] [address] [address] 02 Jan, 2017 Candidiasis of female genitalia B37.3 and Nausea R11.0 [place] [address] [address] Oct, Epigastric pain R10.13 and Dysthymic disorder F34.1 [place] [address] [address] Jan, Dental examination Z01.20 [place] [address] [address] Jan, Nexplanon insertion Z30.017 [facility] [address] [address] 07 Jan, 2016 Enlarged lymph nodes R59.9 [place] [address] [address] Dec, Dysthymic disorder F34.1 [place] [address] [address] Dec, Encounter for contraceptive management, unspecified Z30.9 ; Easy bruising R23.8 ; Screening for STD sexually transmitted disease Z11.3 and Well woman exam (no gynecological exam) Z00.00 [place] [address] [address] Dec, Dysthymic disorder F34.1 [place] [address] [address] Dec, Dysthymic disorder F34.1 [place] [address] [address] Nov, Dysthymic disorder F34.1 [facility] [address] [place] [address] 13 Nov, 2015 Encounter to establish care Z76.89 ; Depression, unspecified depression type F32.9 ; Nightmares F51.5 ; Tooth pain K08.8 and High risk medication use Z79.899 [facility] [id number] [place] [address]- [address] 13 Nov, 2015 Dysthymic disorder F34.1 [facility] [id number] [place] [address] Oct, Dysthymic disorder F34.1 [place] [id number] [place] [address] Oct, Dysthymic disorder F34.1 [facility] [id number] [place] [address] Apr, Sore throat J02.9 and Generalized skin eruption due to drugs and medicaments taken internally L27.0 [facility] [id number] [place] [address] Apr, Swollen lymph nodes R59.9 ; Mononucleosis B27.90 and Strep pharyngitis J02.0 [facility] [id number] [place] [address] Apr, Acute pharyngitis J02.9 and Acute streptococcal pharyngitis J02.0 [facility] [id number] [place] [address]60- 285[address] Jan, Infection of skin of right ear lobe H60.01 IMMUNIZATIONS No Known Immunizations SOCIAL HISTORY Never Assessed REASON FOR VISIT Pyschiatric intake. Debora WEST PLAN OF CARE Activity Details Follow Up 6 Weeks Reason: VITAL SIGNS Height 65.5 in 2017-09-29 Weight 168 lbs 2017-09-29 Heart Rate 76 bpm 2017-09-29 Respiratory Rate 20 2017-09-29 BMI 27.53 kg/m2 2017-09-29 Blood pressure systolic 102 mmHg 2017-09-29 Blood pressure diastolic 66 mmHg 2017-09-29 MEDICATIONS Medication Instructions Dosage Frequency Start Date End Date Duration Status Zoloft 100 MG Orally Once a day 1 tablet 24h 13 Nov, 2015 30 days Active Omeprazole 20 mg Orally Once a day, ac 1 capsule Oct, 30 day( s) Not-Taking Flonase 50 MCG/ACT Nasally twice a day 1 spray in each nostril 12h 30 May, 2017 07 days Active RESULTS No Results PROCEDURES No Known procedures INSTRUCTIONS MEDICATIONS ADMINISTERED No Known Medications MEDICAL (GENERAL) HISTORY Type Description Date Medical History Asthma, exercise induced Medical History Multiple Suicide attempts. Last was 09/03/17 OD on Benadryl, Aleve and Zoloft. [facility] Medical History Self harm by cutting Medical History Depression Hospitalization History inpatient psych [facility] s/p SI 08/2017
--- OUTSIDE RECORDS SUMMARY | 2018-03-02 18:30 | XMS REPORT ---
Author Author BIJAL SINGH [facility] Address [address] [place] [address] Care Team Providers Care Wood Heel Flap Trimmer Name Role Phone BIJAL SINGH Unavailable PROBLEMS Type Condition ICD9-CM Code [id number] Code Onset Dates Condition Status SNOMED Code Problem Dysthymic disorder F34.1 Active 71157932 ALLERGIES Substance Reaction Event Type Date Status Zithromax hives Drug Allergy Apr, Active ENCOUNTERS Encounter Location Date Diagnosis [facility] [address] [place] [address] May, Ear pain, left H92.02 ; Vertigo R42 and Disorder of left eustachian tube H69.[address] [address] Apr, Encounter for Nexplanon removal Z30.46 [facility] [address] [address] Jan, Candidiasis of female genitalia B37.3 and Nausea R11.[address] [address] Oct, Epigastric pain R10.13 and Dysthymic disorder F34.[address] [address] Jan, Dental examination Z01.[address] [address] 08 Feb, 2016 Nexplanon insertion Z30.017 [facility] [address] [place] [address] 07 Jan, 2016 Enlarged lymph nodes R59.9 [place] [address] [place] [address] 86[address] Dec, Dysthymic disorder F34.1 [place] [address] [place] [address] [id number] [place] [address] Dec, Encounter for contraceptive management, unspecified Z30.9 ; Easy bruising R23.8 ; Screening for STD sexually transmitted disease Z11.3 and Well woman exam (no gynecological exam) Z00.00 [place] [address] [place] [address] [id number] [place] [address] 6[address] Dec, Dysthymic disorder F34.1 [place] [address] [place] [address] [id number] [place] [address] 96299- 9841 Dec, Dysthymic disorder F34.1 [place] [address] [address] [id number] [place] [address] 20848- 1829 Nov, Dysthymic disorder F34.1 [place] [address] [place] [address] [id number] [place] [address]28[address] Nov, Encounter to establish care Z76.89 ; Depression, unspecified depression type F32.9 ; Nightmares F51.5 ; Tooth pain K08.8 and High risk medication use Z79.899 [place] [address] [id number] [place] [address] Nov, Dysthymic disorder F34.1 [place] [address] [place] [address] [id number] [place] [address] 8[address]62- 9965 Oct, Dysthymic disorder F34.1 [place] [address] [address] [id number] [place] [address] 88119- 7167 Oct, Dysthymic disorder F34.1 [facility] [address] [place] [address] 28 Apr, 2015 Sore throat J02.9 and Generalized skin eruption due to drugs and medicaments taken internally L27.0 [facility] [id number] [place] [address] Apr, Swollen lymph nodes R59.9 ; Mononucleosis B27.90 and Strep pharyngitis J02.0 [facility] [address] [facility] [id number] [place] [address] Apr, Acute pharyngitis J02.9 and Acute streptococcal pharyngitis J02.0 [facility] [address] [facility] [id number] [address] Jan, Infection of skin of right ear lobe H60.01 IMMUNIZATIONS No Known Immunizations SOCIAL HISTORY Never Assessed REASON FOR VISIT Nexplanon removal, patient states she had the nexplanon since 2015 , irregular bleeding -- jose g العراقي, consent signed PLAN OF CARE Activity Details Follow Up prn Reason: VITAL SIGNS Height 65.5 in 2017-04-15 Weight 169.0 lbs 2017-04-15 Temperature 98.7 degrees Fahrenheit 2017-04-15 BMI 27.69 kg/m2 2017-04-15 Blood pressure systolic 100 mmHg 2017-04-15 Blood pressure diastolic 68 mmHg 2017-04-15 MEDICATIONS Medication Instructions Dosage Frequency Start Date End Date Duration Status Zoloft 50 mg Orally Once a day 1 tablet 24h Nov, Active Omeprazole 20 mg Orally Once a day, ac 1 capsule Oct, 30 day( s) Not-Taking RESULTS No Results PROCEDURES Procedure Date Ordered Result Body Site REMOVE DRUG IMPLANT DEVICE Apr 15, 2017 INSTRUCTIONS MEDICATIONS ADMINISTERED No Known Medications MEDICAL (GENERAL) HISTORY Type Description Date Medical History Asthma, exercise induced
--- OUTSIDE RECORDS SUMMARY | 2018-03-02 18:30 | XMS REPORT ---
Author Author DANNIELLE FINE Organization [facility] Address Unknown Care Team Providers Care Pharmaceutical Compounding Supervisor Name Role Phone RODYDANNIELLE Unavailable PROBLEMS Type Condition ICD9-CM Code [id number] Code Onset Dates Condition Status SNOMED Code Problem Irregular menstrual cycle N92.6 Active 71105402 Problem Mild episode of recurrent major depressive disorder F33.0 Active 315895787 Problem Dysthymic disorder F34.1 Active 04780374 ALLERGIES No Information ENCOUNTERS Encounter Location Date Diagnosis [place] [address] [address] Nov, [place] [address] [address] Oct, Abnormal pelvic ultrasound R93.8 [place] [address] [address] Oct, Pelvic pain R10.2 and Irregular menstrual cycle N92.6 [place] [address] [place] [id number] [place] [address]678 Aug, Mild episode of recurrent major depressive disorder F33.0 [place] [address] [address] Aug, Dysthymic disorder F34.1 [facility] [id number] [place] [address] May, Ear pain, left H92.02 ; Vertigo R42 and Disorder of left eustachian tube H69.92 [facility] [id number] [place] [address]- [address] 13 Apr, 2017 Encounter for Nexplanon removal Z30.46 [facility] [address] [place] [address] 02 Jan, 2017 Candidiasis of female genitalia B37.3 and Nausea R11.0 [place] [address] [address] Oct, Epigastric pain R10.13 and Dysthymic disorder F34.1 [place] [address] [address] Jan, Dental examination Z01.20 [place] [address] [address] 08 Feb, 2016 Nexplanon insertion Z30.017 [facility] [address] [address] Jan, Enlarged lymph nodes R59.9 [place] [address] [address] Dec, Dysthymic disorder F34.1 [place] [address] [place] [id number] [place] [address] Dec, Encounter for contraceptive management, unspecified Z30.9 ; Easy bruising R23.8 ; Screening for STD sexually transmitted disease Z11.3 and Well woman exam (no gynecological exam) Z00.00 [place] [address] [place] [address] [id number] [place] [address]36- [address] 12 Dec, 2015 Dysthymic disorder F34.1 [place] [address] [address]- [address] Dec, Dysthymic disorder F34.1 [place] [address] [place] [id number] [place] [address] 93547- 9184 Nov, Dysthymic disorder F34.1 [place] [address] [place] [id number] [place] [address]- [address] 13 Nov, 2015 Encounter to establish care Z76.89 ; Depression, unspecified depression type F32.9 ; Nightmares F51.5 ; Tooth pain K08.8 and High risk medication use Z79.899 [facility] [address] [address] Nov, Dysthymic disorder F34.1 [facility] [address] [address] Oct, Dysthymic disorder F34.1 [place] [address] [place] [id number] [place] [address]26- [address]774 Oct, Dysthymic disorder F34.1 [facility] IN [facility] [address] [place] [address] Apr, Sore throat J02.9 and Generalized skin eruption due to drugs and medicaments taken internally L27.0 [facility] [place] [address] [address] [place] [address] Apr, Swollen lymph nodes R59.9 ; Mononucleosis B27.90 and Strep pharyngitis J02.0 [facility] IN [facility] [address] [address] Apr, Acute pharyngitis J02.9 and Acute streptococcal pharyngitis J02.0 [place] [address] [address] Jan, Infection of skin of right ear lobe H60.01 IMMUNIZATIONS No Known Immunizations SOCIAL HISTORY Never Assessed REASON FOR VISIT intake PLAN OF CARE Activity Details Follow Up next available Reason: VITAL SIGNS MEDICATIONS Medication Instructions Dosage Frequency Start Date End Date Duration Status Flonase 50 MCG/ACT Nasally twice a day 1 spray in each nostril 12h 30 May, 2017 07 days Unknown Omeprazole 20 mg Orally Once a day, ac 1 capsule Oct, 30 day( s) Unknown Zoloft 50 mg Orally Once a day 1 tablet 24h 13 Nov, 2015 Unknown RESULTS No Results PROCEDURES Procedure Date Ordered Result Body Site Psych diagnostic evaluation, established patient September 15, 2017 INSTRUCTIONS MEDICATIONS ADMINISTERED No Known Medications MEDICAL (GENERAL) HISTORY Type Description Date Medical History Asthma, exercise induced Medical History Multiple Suicide attempts. Last was 09/03/17 OD on Benadryl, Aleve and Zoloft. Voluntary admission to [facility] for THC Medical History Self harm by cutting Medical History Depression Hospitalization History inpatient psych [facility] s/p SI 08/2017
--- OUTSIDE RECORDS SUMMARY | 2018-03-02 18:30 | XMS REPORT ---
Author Author SIN SILVERMAN [facility] eClinical[employer] Address Unknown Phone Unavailable Care Team Providers Care Shot Blast Equipment Operator Name Role Phone SIN SILVERMAN CP Unavailable Allergies, Adverse Reactions, Alerts Substance Reaction Event Type Zithromax hives Drug Allergy Problems Problem Type Condition Code Onset Dates Condition Status Assessment Encounter to establish care Z76.89 Active Assessment Depression, unspecified depression type F32.9 Active Problem Dysthymic disorder F34.1 Active Assessment High risk medication use Z79.899 Active Assessment Nightmares F51.5 Active Assessment Tooth pain K08.8 Active Medications Medication Code System Code Instructions Start Date End Date Status Dosage Amoxicillin [facility] [address]-22 500 MG Orally 3 times a day Nov 14, 2015 Nov 24, 2015 1 tablet Prazosin HCl [facility] [address]-60 2 MG Orally Once a day Nov 14, 2015 1 capsule at bedtime Zoloft [facility] [address]-78 50 mg Orally Once a day X 4 days then 1 TAB DAILY Nov 14, 2015 1/2 tablet Procedures Procedure Coding System Code Date URINE TEST CPT-4 25016 Nov 14, 2015 Office Visit, New Pt., Level 3 CPT-4 06786 Nov 14, 2015 Vital Signs Date/Time: Nov 14, 2015 Cardiac Monitoring Heart Rate 88 bpm Weight 136 lbs Height 65.5 in Wt Percentile 67.85 % BMI 22.28 Index Blood Pressure Diastolic 70 mmHg Blood Pressure Systolic 114 mmHg BMIPercentile 59.6 % Results Name Result Date Reference Range Unit Abnormality Flag TEST, URINE (IN HOUSE) ----RESULTS negative [id number] ----Lot # [id number] ----Control + [id number] ----Exp date [id number] Summary Purpose eClinicalWorks Submission
--- OUTSIDE RECORDS SUMMARY | 2018-03-02 18:31 | XMS REPORT ---
Author Author KAILASH Jackson Organization [facility] Address Unknown Care Team Providers Care Electrician Helper Powerhouse Name Role Phone KAILASH Jackson Unavailable PROBLEMS Type Condition ICD9-CM Code PFU18-BC Code Onset Dates Condition Status SNOMED Code Problem Dysthymic disorder F34.1 Active 74446492 ALLERGIES Substance Reaction Event Type Date Status Zithromax hives Drug Allergy Jan, Active SOCIAL HISTORY No smoking Hx information available PLAN OF CARE VITAL SIGNS MEDICATIONS Medication Instructions Dosage Frequency Start Date End Date Duration Status Zoloft 50 mg Orally Once a day 1 tablet 24h Nov, Active Prazosin HCl 2 MG Orally Once a day 1 capsule at bedtime 24h Nov, Active RESULTS No Results PROCEDURES Procedure Date Ordered Related Diagnosis Body Site LTD ORAL EVALUATION - PROBLEM FOCUS Feb 26, 2016 PANORAMIC FILM SEE ALSO CODE 89149 Feb 26, 2016 IMMUNIZATIONS No Known Immunizations
--- OUTSIDE RECORDS SUMMARY | 2018-03-02 18:31 | XMS REPORT ---
Author BIJAL Boudreaux [employer] Address Unknown Phone Unavailable Care Team Providers Care Agricultural Produce Packer Name Role Phone BIJAL SINGH Unavailable Allergies, Adverse Reactions, Alerts Substance Reaction Event Type Zithromax hives Drug Allergy Problems Problem Type Condition Code Onset Dates Condition Status Assessment Encounter for contraceptive management, unspecified Z30.9 Active Assessment Easy bruising R23.8 Active Problem Dysthymic disorder F34.1 Active Assessment Screening for STD (sexually transmitted disease) Z11.3 Active Assessment Well woman exam (no gynecological exam) Z00.00 Active Medications Medication Code System Code Instructions Start Date End Date Status Dosage Prazosin HCl [facility] [address]-10 2 MG Orally Once a day Nov 14, 2015 1 capsule at bedtime Zoloft [facility] [address]-53 50 mg Orally Once a day Nov 14, 2015 1 tablet Procedures Procedure Coding System Code Date No Charge CPT-4 38543 Dec 21, 2015 LAB NOT BILLED BY [facility] CPT-4 NOBLL Dec 21, 2015 Office Visit, Est Pt., Level 3 CPT-4 71003 Dec 21, 2015 VENIPUNCT, ROUTINE* CPT-4 49131 Dec 21, 2015 Vital Signs Date/Time: Dec 21, 2015 Cardiac Monitoring Heart Rate 100 bpm Weight 138 lbs Height 65.5 in Wt Percentile 70.25 % BMI 22.61 Index Blood Pressure Diastolic 70 mmHg Blood Pressure Systolic 102 mmHg BMIPercentile 62.78 % Results Name Result Date Reference Range Unit Abnormality Flag ROUTINE VENIPUNCTURE CBC ----MCHC 33.4 [id number] 31.5-35.7 g/dL ----MCH 28.1 [id number] 26.6-33.0 pg ----Platelets 219 [id number] 150-379 x10E3/uL ----RDW 14.1 [id number] 12.3-15.4 % ----Immature Granulocytes 0 29393415 % ----Immature Grans (Abs) 0.0 [id number] 0.0-0.1 x10E3/uL ----Lymphs 28 61782513 % ----Monocytes 5 17726140 % ----Neutrophils 66 56935989 % ----Neutrophils (Absolute) 3.2 [id number] 1.4-7.0 x10E3/uL ----Hematocrit 36.5 39877307 34.0-46.6 % ----Lymphs (Absolute) 1.4 [id number] 0.7-3.1 x10E3/uL ----MCV 84 65826683 79-97 fL ----RBC 4.34 [id number] 3.77-5.28 x10E6/uL ----Eos 1 19175713 % ----Basos 0 22367778 % ----Hemoglobin 12.2 74920546 11.1-15.9 g/dL ----Baso (Absolute) 0.0 [id number] 0.0-0.2 x10E3/uL ----WBC 4.9 [id number] 3.4-10.8 x10E3/uL ----Monocytes(Absolute) 0.3 [id number] 0.1-0.9 x10E3/uL ----Eos (Absolute) 0.1 [id number] 0.0-0.4 x10E3/uL Summary Purpose eClinicalWorks Submission
--- OUTSIDE RECORDS SUMMARY | 2018-03-02 18:31 | XMS REPORT ---
Author Author RYAN MARROQUIN Organization [employer] Address Unknown Phone Unavailable Care Team Providers Care Cooking Chef Name Role Phone RYAN MARROQUIN CP Unavailable Allergies, Adverse Reactions, Alerts Substance Reaction Event Type Zithromax hives Drug Allergy Problems Problem Type Condition Code Onset Dates Condition Status Assessment Enlarged lymph nodes R59.9 Active Problem Dysthymic disorder F34.1 Active Medications Medication Code System Code Instructions Start Date End Date Status Dosage Zoloft [facility] [address]-53 50 mg Orally Once a day Nov 14, 2015 1 tablet Prazosin HCl [facility] [address]-14 2 MG Orally Once a day Nov 14, 2015 1 capsule at bedtime Procedures Procedure Coding System Code Date Office Visit, Est Pt., Level 3 CPT-4 89567 Jan 08, 2016 Vital Signs Date/Time: Jan 08, 2016 Cardiac Monitoring Heart Rate 72 bpm Weight 142.0 lbs Height 65.5 in Wt Percentile 74.8 % BMI 23.27 Index Blood Pressure Diastolic 60 mmHg Blood Pressure Systolic 92 mmHg BMIPercentile 68.68 % Results No Known Results Summary Purpose [employer] Submission
--- OUTSIDE RECORDS SUMMARY | 2018-03-02 18:31 | XMS REPORT | Continuity of Care Document ---
Author Author [facility] Address Unknown Phone Unavailable Allergies Active Description Code Type Severity Reaction Onset Reported/Identified Relationship to Patient Clinical Status Yes NO NAME AVAILABLE 37078 DRUG N/ A N/A Yes AZITHROMYCIN 47532 DRUG INGREDI N/A Hives 09/01/2017 09/01/2017 Medications Medication Packaging Start Date Stop Date Route Dosage Sig NICOTINE POLACRILEX 2 MG MT GUM 09/01/2017 Oral 2 EVERY 1 HOUR PRN NICOTINE POLACRILEX 2 MG MT LOZG 09/01/2017 Oral 2 EVERY 1 HOUR PRN OLANZAPINE 10 MG PO TBDP 2017 Oral 10 2 TIMES DAILY PRN ALUM T MAG HYDROXIDE-SIMETH 200-200-20 MG/5ML PO SUSP 09/01/2017 Oral 30 4 TIMES DAILY PRN ACETAMINOPHEN 325 MG PO TABS 04/2017 Oral 650 EVERY 6 HOURS PRN MAGNESIUM HYDROXIDE 400 MG/5ML PO SUSP 09/01/2017 Oral 30 DAILY PRN OLANZAPINE 10 MG PO TABS 2017 Oral 10 2 TIMES DAILY PRN TRAZODONE HCL 100 MG PO TABS 04/2017 Oral 100 BEDTIME PRN ALBUTEROL SULFATE HFA 108 (90 BASE) MCG/ACT IN AERS 09/01/2017 Inhalation 2 EVERY 6 HOURS PRN QUETIAPINE FUMARATE 25 MG PO TABS 09/01/2017 Oral 25 4 TIMES DAILY PRN NICOTINE 14 MG/24HR TD PT24 09/02 Transdermal 1 DAILY SERTRALINE HCL 100 MG PO TABS 05/2017 Oral 100 DAILY Problems Date Dx Coded Attending Type Code Diagnosis Diagnosed By 09/03/2017 FLORENTIN ATKINSON F33.2 Major depressive disorder, recurrent severe without psychotic features (HCC) 09/03/2017 FLORENTIN ATKINSON F12.10 Cannabis abuse, uncomplicated 09/03/2017 FLORENTIN ATKINSON F17.210 Nicotine dependence, cigarettes, uncomplicated 09/03/2017 FLORENTIN ATKINSON F33.2 Major depressive disorder, recurrent severe without psychotic features ([facility]) 09/03/2017 FLORENTIN ATKINSON F41.1 Generalized anxiety disorder 09/03/2017 FLORENTIN ATKINSON J45.909 Unspecified asthma, uncomplicated 09/03/2017 FLORENTIN ATKINSON R45.4 Irritability and anger 09/03/2017 FLORENTIN ATKINSON R45.84 Anhedonia 09/03/2017 FLORENTIN ATKINSON R63.0 Anorexia 09/03/2017 FLORENTIN ATKINSON T43.222A Poisoning by selective serotonin reuptake inhibitors, intentional self-harm , initial encounter ([facility]) Procedures There is no data. Results Test Result Range CBC With Differential/Platelet - 12/21/15 13:23 WBC 4.9 x10E3/uL 3.4-10.8 RBC 4.34 x10E6/uL 3.77-5.28 Hemoglobin 12.2 g/dL 11.1-15.9 Hematocrit 36.5 % 34.0-46.6 MCV 84 fL 79-97 MCH 28.1 pg 26.6-33.0 MCHC 33.4 g/dL 31.5-35.7 RDW 14.1 % 12.3-15.4 Platelets 219 x10E3/uL 150-379 Neutrophils 66 % Lymphs 28 % Monocytes 5 % Eos 1 % Basos 0 % Neutrophils (Absolute) 3.2 x10E3/uL 1.4-7.0 Lymphs (Absolute) 1.4 x10E3/uL 0.7-3.1 Monocytes(Absolute) 0.3 x10E3/uL 0.1-0.9 Eos (Absolute) 0.1 x10E3/uL 0.0-0.4 Baso (Absolute) 0.0 x10E3/uL 0.0-0.2 Immature Granulocytes 0 % Immature Grans (Abs) 0.0 x10E3/uL 0.0-0.1 LIPASE - 10/04/16 09:34 Lipase, Serum 25 U/L 0-59 CBC With Differential/Platelet - 10/04/16 09:34 WBC 4.4 x10E3/uL 3.4-10.8 RBC 4.58 x10E6/uL 3.77-5.28 Hemoglobin 13.2 g/dL 11.1-15.9 Hematocrit 39.4 % 34.0-46.6 MCV 86 fL 79-97 MCH 28.8 pg 26.6-33.0 MCHC 33.5 g/dL 31.5-35.7 RDW 13.3 % 12.3-15.4 Platelets 204 x10E3/uL 150-379 Neutrophils 54 % Lymphs 37 % Monocytes 7 % Eos 2 % Basos 0 % Neutrophils (Absolute) 2.3 x10E3/uL 1.4-7.0 Lymphs (Absolute) 1.7 x10E3/uL 0.7-3.1 Monocytes(Absolute) 0.3 x10E3/uL 0.1-0.9 Eos (Absolute) 0.1 x10E3/uL 0.0-0.4 Baso (Absolute) 0.0 x10E3/uL 0.0-0.2 Immature Granulocytes 0 % Immature Grans (Abs) 0.0 x10E3/uL 0.0-0.1 Comp. Metabolic Panel (14) - 10/04/16 09:34 Glucose, Serum 96 mg/dL 65-99 BUN 8 mg/dL 6-20 Creatinine, Serum 0.89 mg/dL 0.57-1.00 eGFR If NonAfricn Am 94 mL/min/1.73 >59 eGFR If Africn Am 109 mL/min/1.73 >59 BUN/Creatinine Ratio 9 9-23 Sodium, Serum 142 mmol/L 134-144 Potassium, Serum 4.4 mmol/L 3.5-5.2 Chloride, Serum 101 mmol/L 96-106 Carbon Dioxide, Total 23 mmol/L 18-29 Calcium, Serum 9.8 mg/dL 8.7-10.2 Protein, Total, Serum 7.1 g/dL 6.0-8.5 Albumin, Serum 5.0 g/dL 3.5-5.5 Globulin, Total 2.1 g/dL 1.5-4.5 A/G Ratio 2.4 1.2-2.2 Bilirubin, Total 0.3 mg/dL 0.0-1.2 Alkaline Phosphatase, S 53 IU/L 39-117 AST (SGOT) 17 IU/L 0-40 ALT (SGPT) 22 IU/L 0-32 Lipase, Serum - 10/04/16 09:34 Lipase, Serum 25 U/L 0-59 TSH (REFLEX FREE T4 IF ABNORMAL) - 09/02/17 05:21 TSH 0.744 uIU/mL 0.400-4.000 TSH - 10/02/17 09:41 TSH 1.69 mIU/L NRG Encounters ACCT No. Visit Date/Time Discharge Status Pt. Type Provider Facility Loc./Unit Complaint [id number] 09/01/2017 20:35:00 09/03/2017 16:15:00 [facility] [id number] 12/22/2015 07:05:00 Document Registration [id number] 02/04/2018 13:15:00 02/04/2018 23:59:59 CLS Outpatient SIN SILVERMAN APRN [facility] [id number] 10/02/2017 08:40:00 Document Registration [id number] 10/04/2016 09:20:00 Document Registration [id number] 10/05/2016 09:09:00 Document Registration [id number] 01/09/2018 13:00:00 01/09/2018 23:59:59 CLS Preadmit MARY DE LUNA APRN [facility] RAD ABN PELVIC US
[2018-03-02] MEDS ORDERED: LACTATED RINGERS 1,000 ML IV ONE ×2 (19:32→21:00)
--- NOTE | 2018-03-02 19:34 | NUR ---
PT BROUGHT BACK TO ROOM 5, STATES SHE HAS HAD ISSUES WITH NAUSEA EVER SINCE AROUND SEVEN WEEKS INTO HER , PT STATES SHE IS NOW 11 WEEKS ALONG.
[2018-03-02 19:47] LABS: BILIRUBIN,URINE NEGATIVE (NEGATIVE); CLARITY,URINE SLIGHTLY CLOUDY; COLOR,URINE YELLOW; GLUCOSE, URINE (UA) NEGATIVE (NEGATIVE); KETONES,URINE 4+ (NEGATIVE); LEUKOCYTE ESTERASE ,URINE 1+ (NEGATIVE); NITRITE,URINE NEGATIVE (NEGATIVE); PH,URINE 6 (5-9); PROTEIN,URINE 1+ (NEGATIVE); UROBILINOGEN,URINE NORMAL (NORMAL)
[2018-03-02 20:00] VITALS: BP_SYST 108; BP_SYST 116; BP_SYST 123; BP_DIAS 75; BP_DIAS 82
[2018-03-02 20:03] LABS: BASOPHILS % (AUTO) 0 % (0-10); EOSINOPHILS % (AUTO) 0 % (0-10); HEMATOCRIT 37 % (35-52); HEMOGLOBIN 13.1 G/DL (11.5-16.0); LYMPHOCYTES # (AUTO) 1.2 X 10^3 (1.0-4.0); LYMPHOCYTES % (AUTO) 12 % (12-44); MEAN CORPUSCULAR HEMOGLOBIN 29 PG (25-34); MEAN CORPUSCULAR HGB CONC 36 G/DL (32-36); MEAN CORPUSCULAR VOLUME 82 FL (80-99); MEAN PLATELET VOLUME 9.1 FL (7.4-10.4); MONOCYTES # (AUTO) 0.4 X 10^3 (0.0-1.0); MONOCYTES % (AUTO) 4 % (0-12); NEUTROPHILS % (AUTO) 83 % (42-75); PLATELET COUNT 225 10^3/uL (130-400); RED BLOOD COUNT 4.48 10^6/uL (4.35-5.85); RED CELL DISTRIBUTION WIDTH 13.3 % (10.0-14.5); WHITE BLOOD COUNT 9.7 10^3/uL (4.3-11.0)
[2018-03-02 20:08] LABS: BACTERIA,URINE LARGE /HPF
[2018-03-02 20:27] LABS: ALANINE AMINOTRANSFERASE 27 U/L (0-55); ALBUMIN 4.7 GM/DL (3.2-4.5); ALKALINE PHOSPHATASE 43 U/L (40-136); AMYLASE 45 U/L (25-125); BILIRUBIN,TOTAL 0.6 MG/DL (0.1-1.0); BUN/CREATININE RATIO 9; CALCIUM 9.9 MG/DL (8.5-10.1); CARBON DIOXIDE 18 MMOL/L (21-32); CHLORIDE 105 MMOL/L (98-107); GFR ESTIMATED > 60; GLUCOSE 80 MG/DL (70-105); LIPASE 12 U/L (8-78); MAGNESIUM 2.1 MG/DL (1.8-2.4); POTASSIUM 3.5 MMOL/L (3.6-5.0); SODIUM 135 MMOL/L (135-145); TOTAL PROTEIN 7.6 GM/DL (6.4-8.2)
--- NOTE | 2018-03-02 20:46 | ED GI ---
General Chief Complaint: Abdominal/GI Problems Stated Complaint: VOMITING,10 WKS Nursing Triage Note: PT PRESENTS TO ER WITH COMPLAINT OF NAUSEA, VOMTING. PT IS 10 WEEKS AND STATES SHE IS UNABLE TO KEEP ANYTHING DOWN. Sepsis Screen: No Definite Risk Source of Information: Patient History of Present Illness Date Seen by Provider: Mar 02, 2018 Time Seen by Provider: 19:30 Initial Comments PT ARRIVES VIA POV FROM HOME C/O NAUSEA AND VOMITING X 1 MONTH PT STATES SHE IS 10 WEEKS AND HAS HAD THIS SINCE SHE FOUND OUT SHE WAS LMP 12/17/17 STATES SHE WAS SEEN HERE A MONTH AGO FOR THIS PROBLEM--HAS NOT FOLLOWED UP WITH ANYONE SINCE THEN Allergies and Home Medications Allergies Coded Allergies: sertraline (Verified Allergy, Unknown, 03/02/18) Home Medications Doxylamine/Pyridoxine HCl 1 Each Tablet., 2 EACH PO HS Prescribed by: CAMILA DAMIAN on 03/02/182117 Nitrofurantoin Monohyd/M-Cryst 100 Mg Capsule, 100 MG PO BID Prescribed by: CAMILA DAMIAN on 03/02/182117 Past Ucdzftp-Yqlipl-Qxmhdn Hx Patient Social History Alcohol Use: Denies Use Recreational Drug Use: Yes Drug of Choice: WEED Smoking Status: Former Smoker Recent Foreign Travel: No Contact w/Someone Who Travel: No Recent Infectious Disease Expo: No Recent Hopitalizations: No Immunizations Up To Date PED Vaccines UTD: Yes Seasonal Allergies Seasonal Allergies: No Past Medical History Surgeries: No Respiratory: No Cardiac: No Neurological: No Genitourinary: No Gastrointestinal: No Musculoskeletal: No Endocrine: No HEENT: No Cancer: No Psychosocial: No Integumentary: No Blood Disorders: No Physical Exam Vital Signs Vital Signs - First Documented 03/02/18 18:50 Temp 97.0 Pulse 81 Resp 20 B/P (MAP) 108/71 (83) Pulse Ox 100 O2 Delivery Room Air Capillary Refill : Less Than 3 Seconds Height/Weight/BMI Height: 5'7.00" Weight: 170lbs. oz. 77.859401ha; BMI Method:Stated Progress/Results/Core Measures Results/Orders Lab Results Laboratory Tests Test 03/02/18 19:40 03/02/18 19:45 Range/Units Urine Color YELLOW Urine Clarity SLIGHTLY CLOUDY Urine pH 6 5-9 Urine Specific [place] 1.025 H 1.016-1.022 Urine Protein 1+ H NEGATIVE Urine Glucose (UA) NEGATIVE NEGATIVE Urine Ketones 4+ H NEGATIVE Urine Nitrite NEGATIVE NEGATIVE Urine Bilirubin NEGATIVE NEGATIVE Urine Urobilinogen NORMAL NORMAL MG/DL Urine Leukocyte Esterase 1+ H NEGATIVE Urine RBC (Auto) NEGATIVE NEGATIVE Urine RBC NONE /HPF Urine WBC 10-25 H /HPF Urine Squamous Epithelial Cells 10-25 H /HPF Urine Crystals NONE /LPF Urine Bacteria LARGE H /HPF Urine Casts NONE /LPF Urine Mucus LARGE H /LPF Urine Culture Indicated YES Urine Opiates Screen NEGATIVE NEGATIVE Urine Oxycodone Screen NEGATIVE NEGATIVE Urine Methadone Screen NEGATIVE NEGATIVE Urine Propoxyphene Screen NEGATIVE NEGATIVE Urine Barbiturates Screen NEGATIVE NEGATIVE Ur Tricyclic Antidepressants Screen NEGATIVE NEGATIVE Urine Phencyclidine Screen NEGATIVE NEGATIVE Urine Amphetamines Screen NEGATIVE NEGATIVE Urine Methamphetamines Screen NEGATIVE NEGATIVE Urine Benzodiazepines Screen NEGATIVE NEGATIVE Urine Cocaine Screen NEGATIVE NEGATIVE Urine Cannabinoids Screen POSITIVE H NEGATIVE White Blood Count 9.7 4.3-11.0 10^3/uL Red Blood Count 4.48 4.35-5.85 10^6/uL Hemoglobin 13.1 11.5-16.0 G/DL Hematocrit 37 35-52 % Mean Corpuscular Volume 82 80-99 FL Mean Corpuscular Hemoglobin 29 25-34 PG Mean Corpuscular Hemoglobin Concent 36 32-36 G/DL Red Cell Distribution Width 13.3 10.0-14.5 % Platelet Count 225 130-400 10^3/uL Mean Platelet Volume 9.1 7.4-10.4 FL Neutrophils (%) (Auto) 83 H 42-75 % Lymphocytes (%) (Auto) 12 12-44 % Monocytes (%) (Auto) 4 0-12 % Eosinophils (%) (Auto) 0 0-10 % Basophils (%) (Auto) 0 0-10 % Neutrophils # (Auto) 8.0 H 1.8-7.8 X 10^3 Lymphocytes # (Auto) 1.2 1.0-4.0 X 10^3 Monocytes # (Auto) 0.4 0.0-1.0 X 10^3 Eosinophils # (Auto) 0.0 0.0-0.3 10^3/uL Basophils # (Auto) 0.0 0.0-0.1 10^3/uL Sodium Level 135 135-145 MMOL/L Potassium Level 3.5 L 3.6-5.0 MMOL/L Chloride Level 105 98-107 MMOL/L Carbon Dioxide Level 18 L 21-32 MMOL/L Anion Gap 12 5-14 MMOL/L Blood Urea Nitrogen 6 L 7-18 MG/DL Creatinine 0.70 0.60-1.30 MG/DL Estimat Glomerular Filtration Rate > 60 BUN/Creatinine Ratio 9 Glucose Level 80 70-105 MG/DL Calcium Level 9.9 8.5-10.1 MG/DL Corrected Calcium 8.5-10.1 MG/DL Magnesium Level 2.1 1.8-2.4 MG/DL Total Bilirubin 0.6 0.1-1.0 MG/DL Aspartate Amino Transf (AST/SGOT) 25 5-34 U/L Alanine Aminotransferase (ALT/SGPT) 27 0-55 U/L Alkaline Phosphatase 43 40-136 U/L Total Protein 7.6 6.4-8.2 GM/DL Albumin 4.7 H 3.2-4.5 GM/DL Amylase Level 45 25-125 U/L Lipase 12 8-78 U/L Human Chorionic Gonadotropin, Quant 69206 H <5 MIU/ML My Orders Orders - CAMILA DAMIAN DO Saline Lock/Iv-Start (03/02/18 19:32) Orthostatic Vital Signs (Adult (03/02/18 19:32) Amylase (03/02/18 19:32) Cbc With Automated Diff (03/02/18 19:32) Comprehensive Metabolic Panel (03/02/18 19:32) Drug Screen Stat (Urine) (03/02/18 19:32) Hcg,Quantitative (03/02/18 19:32) Lipase (03/02/18 19:32) Magnesium (03/02/18 19:32) Ua Culture If Indicated (03/02/18 19:32) Saline Lock/Iv-Start (03/02/18 19:32) Lactated Ringers (Lr 1000 Ml Iv Solution (03/02/18 19:32) Urine Culture (03/02/18 19:40) Saline Lock/Iv-Start (03/02/18 21:00) Lactated Ringers (Lr 1000 Ml Iv Solution (03/02/18 21:00) Ceftriaxone For Iv Use (Rocephin For I (03/02/18 21:00) Orthostatic Vital Signs (Adult (03/02/18 21:59) Medications Given in ED Current Medications Medications Dose Ordered Sig/Jackelyn Route Start Time Stop Time Status Last Admin Dose Admin Ceftriaxone Sodium 1000 mg/ Sodium Chloride 60 ml @ 100 mls/hr ONCE ONCE IV 03/02/18 21:00 03/02/18 21:35 DC 03/02/18 21:59 100 MLS/HR Lactated Ringer's 1,000 ml @ 0 mls/hr Q0M ONCE IV 03/02/18 19:32 03/02/18 19:33 DC 03/02/18 20:03 1,000 MLS/HR Lactated Ringer's 1,000 ml @ 0 mls/hr Q0M ONCE IV 03/02/18 21:00 03/02/18 21:03 DC 03/02/18 22:15 1,000 MLS/HR Vital Signs/I&O 03/02/18 03/02/18 18:50 20:00 Temp 97.0 Pulse 81 88 70 101 Resp 20 B/P (MAP) 108/71 (83) 123/82 (96) 116/75 (89) 108/75 (86) Pulse Ox 100 O2 Delivery Room Air Blood Pressure Mean: 86 Progress Progress Note : Progress Note STATES SHE FEELS BETTER AFTER IV FLUIDS NO VOMITING DURING ER STAY UNABLE TO OBTAIN FHT'S Departure Impression Primary Impression: Nausea and vomiting during prior to 22 weeks gestation Additional Impression: UTI (urinary tract infection) in in first trimester Disposition: 01 HOME, SELF-CARE Condition: Improved Departure-Patient Inst. Referrals: [facility] (PCP/Family) Primary Care Physician Patient Instructions: Nausea and Vomiting of (DC), Urinary Tract Infection, Adult (DC) Add. Discharge Instructions: LOTS OF CLEAR LIQUIDS--WATER, BROTH, JELLO, GATORADE WHEN YOUR NAUSEA IS BETTER, ADD BRATS DIET TO CLEAR LIQUIDS--BANANAS, RICE, APPLESAUCE, TOAST, SALTINES TYLENOL NEEDED FOR PAIN FOLLOW UP WITH YOUR OB DR THIS WEEK SCHEDULED All discharge instructions reviewed with patient and/or family. Voiced understanding. Scripts Nitrofurantoin Monohyd/M-Cryst (Macrobid 100 mg Capsule) 100 Mg Capsule 100 MG PO BID, #20 CAP Prov: CAMILA DAMIAN DO 03/02/18 Doxylamine/Pyridoxine HCl (Maciel Goldstein 10-10 mg Tablet) 1 Each Tablet. 2 EACH PO HS, #14 TAB Prov: CAMILA DAMIAN DO 03/02/18 CAMILA DAMIAN DO Mar 02, 2018 20:46
[2018-03-02 21:00] LABS: AMPHETAMINE SCREEN, URINE NEGATIVE (NEGATIVE); BARBITURATE SCREEN URINE NEGATIVE (NEGATIVE); BENZODIAZEPINES SCREEN URINE NEGATIVE (NEGATIVE); CANNABINOID SCREEN, URINE POSITIVE (NEGATIVE); COCAINE SCREEN URINE NEGATIVE (NEGATIVE); METHADONE STAT NEGATIVE (NEGATIVE); METHAMPHETAMINE SCREEN URINE S NEGATIVE (NEGATIVE); OPIATE SCREEN URINE NEGATIVE (NEGATIVE); OXYCODONE STAT NEGATIVE (NEGATIVE); PROPOXYPHENE STAT NEGATIVE (NEGATIVE); TRICYCLIC ANTIDEPRESSANTS SCRE NEGATIVE (NEGATIVE)
[2018-03-02] MEDS ORDERED: cefTRIAXone FOR IV USE 1,000 MG in NS (IVPB) 50 ML IV ONE (21:00)
[2018-03-02] MEDS ORDERED: DOXY1TAB3 PO (21:18)
[2018-03-02] MEDS ORDERED: NITR-65 PO (21:18)
[2018-03-02 22:05] VITALS: BP_SYST 102; BP_SYST 109; BP_SYST 96; BP_DIAS 64; BP_DIAS 69; BP_DIAS 75
[2018-03-02 23:14] VITALS: BP 112/75
== END 2018-03-02 23:14 | disposition home or self-care (01) ==
LOC: EDUNIT# 18:11 → ER 18:13
DX: O23.41 Unspecified infection of urinary tract in pregnancy, first trimester (principal); O99.321 Drug use complicating pregnancy, first trimester; F12.10 Cannabis abuse, uncomplicated; Z3A.10 10 weeks gestation of pregnancy; Z88.8 Allergy status to other drugs, medicaments and biological substances; Z87.891 Personal history of nicotine dependence
CPT/HCPCS: 36415; 80053; 80306; 81000; 82150; 83690; 83735; 84702; 85025; 87088

== ENCOUNTER 2018-09-22 19:20 | Inpatient (IN) | payer MEDICAID ==
[~2018-09-22] VITALS: Ht 170.2 cm; Wt 89.8 kg
[~2018-09-22 19:20] MED LIST: DOXY1TAB3 PO; NITR-65 PO
--- NOTE | 2018-09-22 19:20 | NUR ---
DONNA LEACH presented to unit via ambulation from home, accompanied by SO, for INDUCTION. DONNA LEACH weighed, gowned, voided, and to bed. EFHM and TOCO applied, VS taken. DONNA LEACH oriented to bed controls, call light, TV, heat, and A/C controls.
--- OUTSIDE RECORDS SUMMARY | 2018-09-22 19:43 | XMS REPORT ---
Author Author CAMILA VALENTE Organization [facility] Address [address] [place] [address] Care Team Providers Care Circuit Breaker Supervisor Name Role Phone CAMILA VALENTE Unavailable PROBLEMS Type Condition ICD9-CM Code KVD97-QA Code Onset Dates Condition Status SNOMED Code Problem Mild episode of recurrent major depressive disorder F33.0 Active [id number] ALLERGIES No Information ENCOUNTERS Encounter Location Date Diagnosis [facility] [id number] [place] [phone] Oct, [place] [id number] [place] [phone] Aug, [place] [id number] [place] [phone] Aug, [facility] [id number] [place] [address] Aug, care in third trimester Z34.93 and 39 weeks gestation of Z3A.39 [place] [id number] [place] [phone] Aug, [place] [id number] [place] [phone] Aug, care in third trimester Z34.93 and 37 weeks gestation of Z3A.37 [place] [id number] [place] [phone] Aug, [place] [id number] [place] [phone] Aug, [facility] [id number] [place] [address] Aug, care, first in third trimester Z34.03 and 36 weeks gestation of Z3A.36 [place] [id number] [place] [phone] 13 Aug, 2018 [place] [id number] [place] [phone] Aug, Acute non-recurrent maxillary sinusitis J01.00 [place] [id number] [place] [phone] Aug, [place] [id number] [place] [phone] July, Third trimester Z34.93 ; Dysuria R30.0 ; Encounter for immunization Z23 and 32 weeks gestation of Z3A.32 [place] [id number] [place] [address] July, Caries K02.9 [place] [id number] [place] [address] July, care in third trimester Z34.93 and 28 weeks gestation of Z3A.28 [place] [id number] [place] [phone] Jun, Oral health maintenance status requiring routine preventive dental care K08.9 [place] [id number] [place] [phone] Jun, Caries K02.9 [place] [id number] [place] [phone] Jun, care, first in second trimester Z34.02 and 24 weeks gestation of Z3A.24 [place] [id number] [place] [phone] May, Caries K02.9 and Dental examination Z01.20 [place] [id number] [place] [address] May, Oral health maintenance status requiring routine preventive dental care K08.9 ; Dental examination Z01.20 and Caries K02.9 [place] [id number], [place] [address] May, [place] [id number] [place] [address] May, Dental examination Z01.20 [place] [id number] [place] [phone] May, Second trimester Z34.92 and 20 weeks gestation of Z3A.20 [place] [id number] [place] [address] Apr, [place] [id number] [place] [address] Apr, 16 weeks gestation of Z3A.16 ; 15 weeks gestation of Z3A.15 and care in second trimester Z34.92 [place] [id number] [place] [address] Apr, Second trimester Z34.92 and 16 weeks gestation of Z3A.16 [place] [id number] [place] [address] Mar, care in second trimester Z34.92 ; 15 weeks gestation of Z3A.15 and Mild episode of recurrent major depressive disorder F33.0 [place] [id number] [place] [address] Mar, 11 weeks gestation of Z3A.11 and Normal , first Z34.00 [place] [id number] [place] [address] Mar, 11 weeks gestation of Z3A.11 and Normal , first Z34.00 [place] [id number] [place] [address] Mar, [place] [id number] [place] [phone] Mar, [place] [id number] [place] [address] Mar, 11 weeks gestation of Z3A.11 ; Normal , first Z34.00 and Nausea and vomiting during O21.9 [place] [id number] [place] [phone] Jan, [place] [address] [address] Jan, [facility] [place] [address] [address] Jan, [place] [address] [address] Jan, Mild episode of recurrent major depressive disorder F33.0 and Abnormal menses N92.6 [place] [id number] [place] [address] Nov, Mild episode of recurrent major depressive disorder F33.0 [place] [address] [address] Oct, Abnormal pelvic ultrasound R93.8 [place] [address] [address] Oct, Pelvic pain R10.2 and Irregular menstrual cycle N92.6 [place] [id number] [place] [address] Aug, Mild episode of recurrent major depressive disorder F33.0 [place] [id number] [place] [address] Aug, Dysthymic disorder F34.1 [facility] [place] [id number] [place] [address] May, Ear pain, left H92.02 ; Vertigo R42 and Disorder of left eustachian tube H69.92 [place] [address] [address] 13 Apr, 2017 Encounter for Nexplanon removal Z30.46 [facility] [address] [address] 02 Jan, 2017 Candidiasis of female genitalia B37.3 and Nausea R11.0 [place] [address] [address] 04 Oct, 2016 Epigastric pain R10.13 and Dysthymic disorder F34.1 [place] [address] [address] Jan, Dental examination Z01.20 [place] [address] [address] Jan, Nexplanon insertion Z30.017 [facility] [address] [address] Jan, Enlarged lymph nodes R59.9 [place] [address] [address] Dec, Dysthymic disorder F34.1 [place] [address] [address] Dec, Encounter for contraceptive management, unspecified Z30.9 ; Easy bruising R23.8 ; Screening for STD sexually transmitted disease Z11.3 and Well woman exam (no gynecological exam) Z00.00 [place] [id number] [place] [address] Dec, Dysthymic disorder F34.1 [place] [address] [address] Dec, Dysthymic disorder F34.1 [place] [address] [address] Nov, Dysthymic disorder F34.1 [place] [address] [address] Nov, Encounter to establish care Z76.89 ; Depression, unspecified depression type F32.9 ; Nightmares F51.5 ; Tooth pain K08.8 and High risk medication use Z79.899 [place] [id number] [place] [address] Nov, Dysthymic disorder F34.1 [place] [address] [address] Oct, Dysthymic disorder F34.1 [place] [address] [address] Oct, Dysthymic disorder F34.1 [facility] [place] [address] [address] 28 Apr, 2015 Sore throat J02.9 and Generalized skin eruption due to drugs and medicaments taken internally L27.0 [facility] [place] [id number] [place] [id number] Apr, Swollen lymph nodes R59.9 ; Mononucleosis B27.90 and Strep pharyngitis J02.0 [facility] [place] [address] [address] Apr, Acute pharyngitis J02.9 and Acute streptococcal pharyngitis J02.[address] [address] Jan, Infection of skin of right ear lobe H60.01 IMMUNIZATIONS No Known Immunizations SOCIAL HISTORY Never Assessed REASON FOR VISIT [facility] PLAN OF CARE Activity Details Follow Up prn Reason: VITAL SIGNS MEDICATIONS Unknown Medications RESULTS No Results PROCEDURES Procedure Date Ordered Result Body Site Billing Notes on claim May 06, 2018 ORAL HYGIENE INSTRUCTIONS May 06, 2018 INSTRUCTIONS MEDICATIONS ADMINISTERED No Known Medications MEDICAL (GENERAL) HISTORY Type Description Date Medical History Asthma, exercise induced Medical History Multiple Suicide attempts. Last was 09/03/17 OD on Benadryl, Aleve and Zoloft. Voluntary admission to [facility] for THC Medical History Self harm by cutting Medical History Depression Surgical History No know Surgical history Hospitalization History inpatient psych Pete Flynn s/p SI 08/2017
--- OUTSIDE RECORDS SUMMARY | 2018-09-22 19:43 | XMS REPORT ---
Author Author SIN SILVERMAN Organization [facility] Address [address] [place] [address] Care Team Providers Care Fund Development Manager Name Role Phone SIN SILVERMAN Unavailable PROBLEMS Type Condition ICD9-CM Code GOL00-BR Code Onset Dates Condition Status SNOMED Code Problem Mild episode of recurrent major depressive disorder F33.0 Active [id number] ALLERGIES No Information ENCOUNTERS Encounter Location Date Diagnosis [facility] [id number] [place] [phone] Oct, [facility] [id number] [place] [phone] Aug, [facility] [id number] [place] [phone] Aug, [facility] [id number] [place] [phone] Aug, [facility] [id number] [place] [phone] Aug, [facility] [id number] [place] [phone] July, [facility] [id number] [place] [phone] July, [facility] [id number] [place] [phone] Jun, [facility] [id number] [place] [phone] Jun, [facility] [id number] [address] Jun, [facility] [id number] [place] [phone] May, Caries K02.9 and Dental examination Z01.20 [place] [id number] [place] [phone] May, Oral health maintenance status requiring routine preventive dental care K08.9 ; Dental examination Z01.20 and Caries K02.9 [place] [id number] [place] [phone] May, [place] [id number] [place] [phone] May, Dental examination Z01.20 [place] [id number] [place] [phone] May, 20 weeks gestation of Z3A.20 and Second trimester Z34.92 [place] [id number] [place] [phone] Apr, [place] [id number] [place] [address] Apr, 16 weeks gestation of Z3A.16 ; 15 weeks gestation of Z3A.15 and care in second trimester Z34.92 [place] [id number] [place] [phone] Apr, 16 weeks gestation of Z3A.16 and Second trimester Z34.92 [place] [id number] [place] [phone] Mar, care in second trimester 34.92 ; 15 weeks gestation of Z3A.15 and Mild episode of recurrent major depressive disorder F33.0 [place] [id number] [place] [phone] Mar, 11 weeks gestation of Z3A.11 and Normal , first Z34.00 [id number] [place] [phone] Mar, 11 weeks gestation of Z3A.11 and Normal , first Z34.00 [facility] [id number] [place] [phone] Mar, [facility] [id number] [place] [phone] Mar, [facility] [id number] [place] [phone] Mar, 11 weeks gestation of Z3A.11 ; Normal , first Z34.00 and Nausea and vomiting during O21.9 [facility] [id number] [place] [phone] Jan, [facility] [id number] [place] [phone] Jan, [facility] [id number] [place] [phone] Jan, [facility] [id number] [place] [phone] Jan, Mild episode of recurrent major depressive disorder F33.0 and Abnormal menses N92.6 [place] [id number] [place] [phone] Nov, Mild episode of recurrent major depressive disorder F33.0 [place] [id number] [place] [phone] Oct, Abnormal pelvic ultrasound R93.8 [place] [id number] [place] [phone] Oct, Pelvic pain R10.2 and Irregular menstrual cycle N92.6 [place] [id number] [place] [phone] Aug, Mild episode of recurrent major depressive disorder F33.0 [place] [id number] [place] [phone] Aug, Dysthymic disorder F34.1 [facility] [place] [id number] [place] [phone] May, Ear pain, left H92.02 ; Vertigo R42 and Disorder of left eustachian tube H69.92 [place] [address] [address] 13 Apr, 2017 Encounter for Nexplanon removal Z30.46 [facility] [place] [address] [address] Jan, Candidiasis of female genitalia B37.3 and [address] [address] Oct, Epigastric pain R10.13 and Dysthymic disorder F34.1 [place] [address] [address] Jan, Dental examination Z01.20 [place] [address] [address] 08 Feb, 2016 Nexplanon insertion Z30.017 [facility] [place] [address] [address] Jan, Enlarged lymph nodes R59.9 [place] [address] [address] Dec, Dysthymic disorder F34.1 [place] [address] [address] Dec, Encounter for contraceptive management, unspecified Z30.9 ; Easy bruising R23.8 ; Screening for STD sexually transmitted disease Z11.3 and Well woman exam (no gynecological exam) Z00.00 [place] [id number] [place] [address] Dec, Dysthymic disorder F34.1 [place] [address] [address] Dec, Dysthymic disorder F34.1 [place] [id number] [place] [phone] 20 Nov, 2015 Dysthymic disorder F34.1 [place] [id number] [place] [address] 13 Nov, 2015 Encounter to establish care Z76.89 ; Depression, unspecified depression type F32.9 ; Nightmares F51.5 ; Tooth pain K08.8 and High risk medication use Z79.899 [place] [id number] [place] [address] 13 Nov, 2015 Dysthymic disorder F34.1 [place] [id number] [place] [address] Oct, Dysthymic disorder F34.1 [place] [id number] [place] [address] Oct, Dysthymic disorder F34.1 [facility] [id number] [place] [phone] 28 Apr, 2015 Sore throat J02.9 and Generalized skin eruption due to drugs and medicaments taken internally L27.0 [facility] [place] [id number] [place] [address] 23 Apr, 2015 Swollen lymph nodes R59.9 ; Mononucleosis B27.90 and Strep pharyngitis J02.0 [facility] [id number] [place] [address] Apr, Acute pharyngitis J02.9 and Acute streptococcal pharyngitis J02.0 [place] [id number] [place] [address] Jan, Infection of skin of right ear lobe H60.01 IMMUNIZATIONS No Known Immunizations SOCIAL HISTORY Never Assessed REASON FOR VISIT Update [employer] PLAN OF CARE VITAL SIGNS MEDICATIONS Unknown Medications RESULTS No Results PROCEDURES No Known procedures INSTRUCTIONS MEDICATIONS ADMINISTERED No Known Medications MEDICAL (GENERAL) HISTORY Type Description Date Medical History Asthma, exercise induced Medical History Multiple Suicide attempts. Last was 09/03/17 OD on Benadryl, Aleve and Zoloft. Voluntary admission to [facility] for THC Medical History Self harm by cutting Medical History Depression Surgical History No know Surgical history Hospitalization History inpatient psych [facility] s/p SI 08/2017
--- OUTSIDE RECORDS SUMMARY | 2018-09-22 19:45 | XMS REPORT | Continuity of Care Document ---
Author Organization Unknown Address Unknown Allergies Active Description Code Type Severity Reaction Onset Reported/Identified Relationship to Patient Clinical Status Yes NO NAME AVAILABLE 97473 DRUG N/A N/A Yes AZITHROMYCIN 86431 DRUG INGREDI N/A Hives 09/01/2017 09/01/2017 Medications Medication Packaging Start Date Stop Date Route Dosage Sig NICOTINE POLACRILEX 2 MG MT GUM 09/01/2017 Oral 2 EVERY 1 HOUR PRN NICOTINE POLACRILEX 2 MG MT LOZG 09/01/2017 Oral 2 EVERY 1 HOUR PRN OLANZAPINE 10 MG PO TBDP 09/01/2017 Oral 10 2 TIMES DAILY PRN ALUM T MAG HYDROXIDE-SIMETH 200-200-20 MG/5ML PO SUSP 09/01/2017 Oral 30 4 TIMES DAILY PRN ACETAMINOPHEN 325 MG PO TABS 09/01/2017 Oral 650 EVERY 6 HOURS PRN MAGNESIUM HYDROXIDE 400 MG/5ML PO SUSP 09/01/2017 Oral 30 DAILY PRN OLANZAPINE 10 MG PO TABS 09/01/2017 Oral 10 2 TIMES DAILY PRN TRAZODONE HCL 100 MG PO TABS 09/01/2017 Oral 100 BEDTIME PRN ALBUTEROL SULFATE HFA 108 (90 BASE) MCG/ACT IN AERS 09/01/2017 Inhalation 2 EVERY 6 HOURS PRN QUETIAPINE FUMARATE 25 MG PO TABS 09/01/2017 Oral 25 4 TIMES DAILY PRN NICOTINE 14 MG/24HR TD PT24 09/02/2017 Transdermal 1 DAILY SERTRALINE HCL 100 MG PO TABS 09/02/2017 Oral 100 DAILY Problems Date Dx Coded Attending Type Code Diagnosis Diagnosed By 09/03/2017 FLORENTIN ATKINSON F33.2 Major depressive disorder, recurrent severe without psychotic features (HCC) 09/03/2017 FLORNETIN ATKINSON F12.10 Cannabis abuse, uncomplicated 09/03/2017 FLORENTIN ATKINSON F17.210 Nicotine dependence, cigarettes, uncomplicated 09/03/2017 FLORENTIN ATKINSON F33.2 Major depressive disorder, recurrent severe without psychotic features ([facility]) 09/03/2017 [place] FLORENTIN Lion Suarez F41.1 Generalized anxiety disorder 09/03/2017 [place] FLORENTIN Lion Suarez J45.909 Unspecified asthma, uncomplicated 09/03/2017 [place] FLORENTIN Lion Suarez R45.4 Irritability and anger 09/03/2017 [place] FLORENTIN Lion Suarez R45.84 Anhedonia 09/03/2017 [facility] Lion Suarez R63.0 Anorexia 09/03/2017 [place] FLORENTIN Suarez T43.222A Poisoning by selective serotonin reuptake inhibitors, intentional self-harm, initial encounter ([facility]) Procedures There is no data. Results Test Result Range LIPASE - 10/04/16 09:34 Lipase, Serum 25 U/L 0-59 TSH (REFLEX FREE T4 IF ABNORMAL) - 09/02/17 05:21 TSH 0.744 uIU/mL 0.400-4.000 TSH - 10/02/17 09:41 TSH 1.69 mIU/L NRG PENTA SCREEN - 04/28/18 15:32 Maternal Weight 175 lbs NRG Est'd Date of Delivery 09/21/2018 NRG STEVEN Determined by ULTRASOUND NRG Mother's Ethnic Origin NRG Number of Fetuses 1 NRG Insulin Depend Diabetic NO NRG Repeat Specimen NO NRG Hx Of Neural Tube Defects NO NRG Prev Down Synd NO NRG Donor Egg NO NRG Donor Age: Egg Retrieval NOT GIVEN NRG Cigarette smoker NOT GIVEN NRG INTERPRETATION: SEE NOTE NRG Risk for ONTD 1:3800 NRG Age Risk Down Syndrome 1:1159 NRG WHIT Down Syndrome Risk 1:4979 <1:270 WHIT Trisomy 18 Risk <1:5000 <1:100 Calc'd Gestational Age 19.1 NRG AFP, Serum 42.4 ng/mL NRG AFP MoM 0.94 NRG hCG, Serum 17.0 IU/mL NRG hCG MoM 0.88 NRG Estriol, Free 1.14 ng/mL NRG Estriol MoM 0.78 NRG Inhibin A, Dimeric 85 pg/mL NRG Inhibin A MoM 0.52 NRG h-hCG, Serum 20.5 mcg/L NRG h-hCG MoM 1.47 NRG Date of 1995 NRG Collection Date 04/28/2018 NRG CULTURE, URINE - 05/06/18 18:47 CULTURE, URINE, ROUTINE SEE NOTE NRG GLUCOSE SUSI 1 HOUR - 07/01/18 14:15 GLUCOSE, POSTPRANDIAL/ 1 HOUR 116 mg/dL See Note: CULTURE, URINE - 07/29/18 14:54 CULTURE, URINE, ROUTINE SEE NOTE NRG CULTURE, GROUP B STREP (VAGINAL) - 08/26/18 16:37 STREPTOCOCCUS, GROUP B CULTURE SEE NOTE NRG Encounters ACCT No. Visit Date/Time Discharge Status Pt. Type Provider Facility Loc./Unit Complaint [id number] 09/17/2018 13:40:00 09/17/2018 23:59:59 [facility] Outpatient SIN SILVERMAN APRN [facility] [id number] 08/26/2018 13:00:00 Document Registration [id number] 07/29/2018 13:00:00 Document Registration [id number] 07/01/2018 13:00:00 Document Registration [id number] 05/06/2018 13:00:00 Document Registration [id number] 04/28/2018 12:15:00 Document Registration [id number] 10/02/2017 08:40:00 Document Registration [id number] 10/04/2016 09:20:00 Document Registration [id number] 09/01/2017 20:35:00 09/03/2017 16:15:00 DIS Inpatient FLORENTIN ATKINSON [facility]
[2018-09-22 19:47] VITALS: BP 124/77
[2018-09-22] MEDS ORDERED: LACTATED RINGERS 1,000 ML IV ONE (19:52)
[2018-09-22 20:40] VITALS: BP 116/74
[2018-09-22] MEDS ORDERED: LACTATED RINGERS 1,000 ML IV SCH (20:44)
[2018-09-22] MEDS ORDERED: TERBUTALINE INJ 1 MG/ML (BRETHINE) AMP SC PRN (20:45)
[2018-09-22] MEDS ORDERED: MINERAL OIL CONCENTRATE 99.9% 15 ML UDC TOP PRN (20:45)
[2018-09-22] MEDS ORDERED: MISOPROSTOL 100 MCG (CYTOTEC) TAB PO ONE (20:45)
[2018-09-22 20:52] LABS: BASOPHILS % (AUTO) 0 % (0-10); EOSINOPHILS % (AUTO) 0 % (0-10); HEMATOCRIT 33 % (35-52); HEMOGLOBIN 11.2 G/DL (11.5-16.0); LYMPHOCYTES # (AUTO) 1.7 X 10^3 (1.0-4.0); LYMPHOCYTES % (AUTO) 17 % (12-44); MEAN CORPUSCULAR HEMOGLOBIN 28 PG (25-34); MEAN CORPUSCULAR HGB CONC 34 G/DL (32-36); MEAN CORPUSCULAR VOLUME 81 FL (80-99); MEAN PLATELET VOLUME 10.3 FL (7.4-10.4); MONOCYTES # (AUTO) 0.5 X 10^3 (0.0-1.0); MONOCYTES % (AUTO) 6 % (0-12); NEUTROPHILS # (AUTO) 7.6 X 10^3 (1.8-7.8); NEUTROPHILS % (AUTO) 77 % (42-75); PLATELET COUNT 180 10^3/uL (130-400); RED CELL DISTRIBUTION WIDTH 13.5 % (10.0-14.5); WHITE BLOOD COUNT 9.8 10^3/uL (4.3-11.0)
[2018-09-22] MEDS ORDERED: MISOPROSTOL 100 MCG (CYTOTEC) TAB ONE (20:53)
[2018-09-22 20:55] LABS: BILIRUBIN,URINE NEGATIVE (NEGATIVE); CLARITY,URINE SLIGHTLY CLOUDY; COLOR,URINE YELLOW; GLUCOSE, URINE (UA) NEGATIVE (NEGATIVE); KETONES,URINE NEGATIVE (NEGATIVE); LEUKOCYTE ESTERASE ,URINE 1+ (NEGATIVE); NITRITE,URINE NEGATIVE (NEGATIVE); PH,URINE 6 (5-9); PROTEIN,URINE NEGATIVE (NEGATIVE); UROBILINOGEN,URINE NORMAL (NORMAL)
[2018-09-22] MEDS: D5 LR IV SOLUTION 1,000 ML IV SCH (21:02)
[2018-09-22 21:12] VITALS: BP 116/80
[2018-09-22 21:17] LABS: WBC,URINE 0-2 /HPF
[2018-09-22 21:18] LABS: BACTERIA,URINE MODERATE /HPF; SQUAMOUS EPITHELIAL CELL,UR 0-2 /HPF
[2018-09-22] MEDS ORDERED: CATHETER FLUSH 10 ML SYR IV SCH (22:00)
[2018-09-22 22:14] VITALS: BP 107/69
[2018-09-22 23:13] VITALS: BP 109/70
[2018-09-23] VITALS (52 sets, daily range): BP systolic 102–154; BP diastolic 9–91
[2018-09-23] MEDS ORDERED: MISOPROSTOL 100 MCG (CYTOTEC) TAB PO SCH (00:45)
[2018-09-23] MEDS: D5 LR IV SOLUTION 1,000 ML IV SCH ×2 (04:52→12:44)
[2018-09-23] MEDS ORDERED: OXYTOCIN/NORMAL SALINE 500 ML IV ONE (07:44)
[2018-09-23] MEDS ORDERED: OXYTOCIN/NORMAL SALINE 500 ML IV SCH ×2 (07:47→16:43)
--- NOTE | 2018-09-23 07:56 | History & Physical-OB ---
OB - Chief Complaint & HPI Date/Time Date of Admission: Date of Admission: Sep 22, 2018 at 19:20 Date seen by a Provider: Sep 23, 2018 Time Seen by a Provider: 07:34 Chief Complaint/History OB-Reason for Admission/Chief: Induction of Labor (Post dates) Hx : 1 Hx Para: 0 Expected Date of Delivery: Sep 21, 2018 Gestational Age in Weeks: 40 Gestational Age in Days: 1 Indication for induction: post dates History of Labs A+, Ab neg Rub Imm GC/Chyl neg HIV/RPR/HepB NR Normal 1 hr GTT GBS neg Allergies and Home Medications Allergies Coded Allergies: azithromycin (Verified Allergy, Mild, Hives, 09/22/18) Home Medications No Active Prescriptions or Reported Meds Patient Home Medication List Home Medication List Reviewed: Yes OB - History Hx of Present Care: Yes Ultrasounds: No ultrasounds Obstetrical Complications: None Medical Complications: None Information Induced Hypertension: No Maternal Gestational Diabetes: No Hemorrhage: No Obstetrical History Hx : 1 Hx Para: 0 Patient Past Medical History Depression Social History/Family History HIV/AIDS: No Recent Infectious Disease Expo: No Sexually Transmitted Disease: No Alcohol Use: Denies Use Recreational Drug Use: No Immunizations Tetanus Booster (TDap): Less than 5yrs Rubella: immune RPR/VDRL: Negative GBS Status: Negative HBsAG: Negative OB - Admission Exam Physical Exam Vitals: Vital Signs 09/23/18 06:25 Temp 97.8 Pulse 76 Resp 18 B/P (MAP) 108/73 (85) Pulse Ox 98 O2 Delivery Room Air HEENT: NCAT Heart: Rhythm Normal Lungs: Clear Abdomen: Gravid Extremities: Normal Reflexes: Normal Cervical Dilatation: 3cm Effacement: 75% Station: 0 Membranes: Ruptured Amniotic Fluid: Clear Heart Rate: 140's Accelerations: Accelerations Present Decelerations: No Decelerations Contractions on Admission: < 5 Minutes Apart Intensity: Moderate Barnett Scoring Tool (Modified) Dilation (cm): 1-2cm (1) Effacement (%): 51-79% (2) Descent/Station: -1,0 (2) Cervix Consistency: Medium(1) Cervix Position: Anterior (2) Subtract 1 point for: Nulliparity (-1) Barnett Score: 7 Labs Laboratory Tests Test 09/22/18 19:20 09/22/18 19:55 Range/Units Urine Color YELLOW Urine Clarity SLIGHTLY CLOUDY Urine pH 6 5-9 Urine Specific [place] 1.020 1.016-1.022 Urine Protein NEGATIVE NEGATIVE Urine Glucose (UA) NEGATIVE NEGATIVE Urine Ketones NEGATIVE NEGATIVE Urine Nitrite NEGATIVE NEGATIVE Urine Bilirubin NEGATIVE NEGATIVE Urine Urobilinogen NORMAL NORMAL MG/DL Urine Leukocyte Esterase 1+ H NEGATIVE Urine RBC (Auto) NEGATIVE NEGATIVE Urine RBC NONE /HPF Urine WBC 0-2 /HPF Urine Squamous Epithelial Cells 0-2 /HPF Urine Crystals NONE /LPF Urine Bacteria MODERATE H /HPF Urine Casts NONE /LPF Urine Mucus NEGATIVE /LPF Urine Culture Indicated NO White Blood Count 9.8 4.3-11.0 10^3/uL Red Blood Count 4.07 L 4.35-5.85 10^6/uL Hemoglobin 11.2 L 11.5-16.0 G/DL Hematocrit 33 L 35-52 % Mean Corpuscular Volume 81 80-99 FL Mean Corpuscular Hemoglobin 28 25-34 PG Mean Corpuscular Hemoglobin Concent 34 32-36 G/DL Red Cell Distribution Width 13.5 10.0-14.5 % Platelet Count 180 130-400 10^3/uL Mean Platelet Volume 10.3 7.4-10.4 FL Neutrophils (%) (Auto) 77 H 42-75 % Lymphocytes (%) (Auto) 17 12-44 % Monocytes (%) (Auto) 6 0-12 % Eosinophils (%) (Auto) 0 0-10 % Basophils (%) (Auto) 0 0-10 % Neutrophils # (Auto) 7.6 1.8-7.8 X 10^3 Lymphocytes # (Auto) 1.7 1.0-4.0 X 10^3 Monocytes # (Auto) 0.5 0.0-1.0 X 10^3 Eosinophils # (Auto) 0.0 0.0-0.3 10^3/uL Basophils # (Auto) 0.0 0.0-0.1 10^3/uL OB - Assessment/Plan/Diagnosis Assessment Assessment: induction of labor Admission Dx IOL for post date 40 week gestation Third trimester Admission Status: Inpatient Order (span 2 midnights) Reason for Inpatient Admission: IOL Plan Plan: Induction Induction Method: per Pitocin Protocol Other Plan 23 yo G1 @ 40.1 wga here for IOL for post dates Plan AROM @ 0734 clear Pitocin augmentation GBS neg Copy Copies To 1: MAI CAROLINA MD, HOLLY R MD Sep 23, 2018 07:56
[2018-09-23] MEDS ORDERED: BUTORPHANOL INJ 2 MG/ML (STADOL) VIAL IV PRN (09:30)
--- NOTE | 2018-09-23 09:30 | NUR ---
Report to Mackenzie Gomez RN
--- NOTE | 2018-09-23 09:30 | NUR ---
report received from JENNA Gibson. care assumed of pt.
--- NOTE | 2018-09-23 12:46 | NUR ---
anesthesia notified of pt's request for epidural
[2018-09-23] MEDS ORDERED: SUFENTA 0.6MCG/ML BUPIVA 0.125 100 ML ONE (12:53)
--- NOTE | 2018-09-23 12:55 | NUR ---
LORRAINE Pedraza here for epidural placement. Procedure explained, consent reviewed and signed by anesthesia. Questions answered to patient's satisfaction. Time out taken to verify correct patient/procedure. 1300- Patient up to side of bed, assisted into sitting position. Betadine prep done x3 and sterile drape applied. 1307- Local done, see anesthesia record. 1309- Test dose given, see anesthesia record for drug and dosage. Epidural catheter secured in place. Epidural placement complete. 1314- Assisted back into bed, monitors adjusted. Epidural dosed, see anesthesia record. Epidural of Sufenta/Bupvicaine @12cc/hr stated per pump. Patient tolerated procedure well.
[2018-09-23] MEDS ORDERED: LACTATED RINGERS 1,000 ML IV SCH (13:20)
[2018-09-23] MEDS ORDERED: METOCLOPRAMIDE INJ 10 MG/2 ML (REGLAN) IV PRN (13:30)
[2018-09-23] MEDS ORDERED: NALOXONE 0.4 MG/ML 1 ML (NARCAN) VIAL IV PRN ×2 (13:30)
[2018-09-23] MEDS ORDERED: ONDANSETRON 4 MG/2 ML (SDV) Z0FRAN IV PRN (13:30)
[2018-09-23] MEDS ORDERED: EPIDURAL (SUFENTA 0.6MCG/ML BUPIVA 0.125%) 100 ML BAG EPI SCH (13:30)
[2018-09-23] MEDS ORDERED: diphenhydrAMINE 50 MG/ML INJ (BENADRYL) IV PRN (13:30)
[2018-09-23] MEDS ORDERED: MISOPROSTOL 200 MCG (CYTOTEC) TABLET ONE (16:02)
[2018-09-23] MEDS ORDERED: LIDOCAINE/EPI 2% 1:200,00 (XYLOCAINE) 10 ML VIAL ONE (16:08)
[2018-09-23] MEDS ORDERED: BENZOCAINE/MENTHOL (DERMOPLAST) 56 ML CAN TP ONE (16:16)
[2018-09-23] MEDS ORDERED: BENZOCAINE/MENTHOL (DERMOPLAST) 56 ML CAN TP PRN (16:45)
[2018-09-23] MEDS ORDERED: MEASLES,MUMPS,RUBELLA 1 EA INJ SQ ONE (16:45)
[2018-09-23] MEDS ORDERED: WITCH HAZEL(TUCKS) 40 EA JAR TOP PRN (16:45)
[2018-09-23] MEDS ORDERED: TETANUS,DIPTH,PERTUSS P/F (BOOSTRIX) 0.5 ML VIAL IM ONE (16:45)
--- NOTE | 2018-09-23 16:52 | OB Labor & Delivery Record ---
Vag Delivery Note Vag Delivery Note Date of Delivery: 09/23/18 Preoperative Diagnosis: Greer Santamaria is a (23 /Para 1 / 0, Gestational Age (wks)40.1 here for IOL for post dates Postoperative Diagnosis: Same Surgeon: MAI CAROLINA Head Librarian: None Anesthesia: Epidural Delivery Type: @1602 Findings: Viable Male infant, apgars 8/9, weight 7#14, 3245 grams Lacerations: bilateral labile lacerations Intact placenta with 3 vessel cord. No nuchal cord, body cord or shoulder dystocia Cytotec 800 mcg placed for hemorrhage prophylaxis Estimated Blood Loss: 150 ml Complications: None Condition: Stable Description of Procedure: The patient is a 23 year old female G1 now P1 who presented for IOL for post dates. She was admitted and informed consent was obtained. Her labor course was unremarkable. She progressed to complete dilatation and began to push. She was then set up for delivery. The 's head was delivered atraumatically in the TARUN position. The shoulders and remainder of the infant's body were then delivered without difficulty. Upon delivery, the head was held below the level of the perineum and the mouth and nares were bulb suctioned. The cord was doubly clamped and cut after 2 min delay by FOB and the infant was placed on maternal abdomen and attended to by pediatric staff. An intact placenta with 3-vessel cord delivered via Jannet and there was found to be moderate bleeding.~ Vigorous fundal massage was performed and the fundus was found to be firm. IV oxytocin/Cytotec was given. Examination of the vagina and perineum revealed bilateral labile lacerations repaired in the usual fashion with 3-0 vicryl reped suture. Following the repair, sponge, instrument and needle counts were correct. Mom and baby were both in stable condition in the labor suite. Vitals - Labs Vital Signs - I&O Vital Signs Date Time Temp Pulse Resp B/P (MAP) Pulse Ox O2 Delivery O2 Flow Rate FiO2 09/23/18 11:30 77 18 119/72 (88) Room Air 09/23/18 11:15 76 18 114/79 (91) Room Air 09/23/18 11:00 66 18 110/76 (87) Room Air 09/23/18 10:45 67 18 113/72 (86) Room Air 09/23/18 10:30 82 18 120/80 (93) Room Air 09/23/18 10:15 75 18 124/75 (91) Room Air 09/23/18 10:00 83 18 122/80 (94) Room Air 09/23/18 09:45 96.9 75 18 126/82 (97) Room Air 09/23/18 09:27 81 18 122/81 (95) Room Air 09/23/18 08:57 75 18 119/79 (92) Room Air 09/23/18 08:42 74 18 123/82 (96) Room Air 09/23/18 08:27 80 18 117/86 (96) Room Air 09/23/18 08:12 71 18 117/81 (93) Room Air 09/23/18 07:55 75 18 120/88 (99) Room Air 09/23/18 07:40 97.7 70 18 118/77 (91) Room Air 09/23/18 06:25 97.8 76 18 108/73 (85) 98 Room Air 09/23/18 03:01 96.7 70 18 117/80 (92) 97 Room Air 09/23/18 02:17 71 20 111/72 (85) Room Air 09/23/18 01:17 83 20 114/71 (85) Room Air 09/23/18 00:17 72 18 108/70 (83) Room Air 09/22/18 23:13 97.2 82 18 109/70 (83) 97 Room Air 09/22/18 22:14 83 18 107/69 (82) Room Air 09/22/18 21:12 95 20 116/80 (92) Room Air 09/22/18 20:40 105 20 116/74 (88) Room Air 09/22/18 19:47 97.6 112 18 124/77 (93) 97 Room Air I & O 09/23/18 07:00 Intake Total 2400 ml Balance 2400 ml Labs Laboratory Tests 09/22/18 19:20: Urine Color YELLOW, Urine Clarity SLIGHTLY CLOUDY, Urine pH 6, Urine Specific [place] 1.020, Urine Protein NEGATIVE, Urine Glucose (UA) NEGATIVE, Urine Ketones NEGATIVE, Urine Nitrite NEGATIVE, Urine Bilirubin NEGATIVE, Urine Urobilinogen NORMAL, Urine Leukocyte Esterase 1+H, Urine RBC (Auto) NEGATIVE, Urine RBC NONE, Urine WBC 0-2, Urine Squamous Epithelial Cells 0-2, Urine Crystals NONE, Urine Bacteria MODERATEH, Urine Casts NONE, Urine Mucus NEGATIVE, Urine Culture Indicated NO 09/22/18 19:55: White Blood Count 9.8, Red Blood Count 4.07L, Hemoglobin 11.2L, Hematocrit 33L, Mean Corpuscular Volume 81, Mean Corpuscular Hemoglobin 28, Mean Corpuscular Hemoglobin Concent 34, Red Cell Distribution Width 13.5, Platelet Count 180, Mean Platelet Volume 10.3, Neutrophils (%) (Auto) 77H, Lymphocytes (%) (Auto) 17, Monocytes (%) (Auto) 6, Eosinophils (%) (Auto) 0, Basophils (%) (Auto) 0, Neutrophils # (Auto) 7.6, Lymphocytes # (Auto) 1.7, Monocytes # (Auto) 0.5, Eosinophils # (Auto) 0.0, Basophils # (Auto) 0.0 MAI CAROLINA MD Sep 23, 2018 16:52
--- NOTE | 2018-09-23 18:26 | NUR ---
stork meal served
[2018-09-23] MEDS: IBUPROFEN 600 MG (MOTRIN) TAB PO SCH (18:30)
--- NOTE | 2018-09-23 19:30 | NUR ---
report given to next shift.
--- NOTE | 2018-09-23 19:45 | NUR ---
FFu/1. no vaginal bleeding noted. az-care offered. Dermaplast to perineum. v-pad and panties in place. pt transferred to room 310 via w/c with standby assist x1. Lt leg remains sl heavy. call light within reach.
[2018-09-23] MEDS: DOCUSATE SODIUM 100 MG (COLACE) CAP PO SCH (20:58)
[2018-09-23] MEDS ORDERED: CATHETER FLUSH 10 ML SYR IV SCH (22:00)
[2018-09-24] MEDS: IBUPROFEN 600 MG (MOTRIN) TAB PO SCH ×4 (00:01→20:48)
[2018-09-24 03:55] VITALS: BP 107/61
[2018-09-24 05:26] LABS: BASOPHILS % (AUTO) 0 % (0-10); EOSINOPHILS % (AUTO) 0 % (0-10); HEMATOCRIT 28 % (35-52); HEMOGLOBIN 9.4 G/DL (11.5-16.0); LYMPHOCYTES # (AUTO) 1.3 X 10^3 (1.0-4.0); LYMPHOCYTES % (AUTO) 13 % (12-44); MEAN CORPUSCULAR HEMOGLOBIN 28 PG (25-34); MEAN CORPUSCULAR HGB CONC 34 G/DL (32-36); MEAN CORPUSCULAR VOLUME 83 FL (80-99); MEAN PLATELET VOLUME 9.5 FL (7.4-10.4); MONOCYTES # (AUTO) 0.9 X 10^3 (0.0-1.0); MONOCYTES % (AUTO) 9 % (0-12); NEUTROPHILS # (AUTO) 7.7 X 10^3 (1.8-7.8); NEUTROPHILS % (AUTO) 78 % (42-75); PLATELET COUNT 146 10^3/uL (130-400); RED CELL DISTRIBUTION WIDTH 13.4 % (10.0-14.5); WHITE BLOOD COUNT 9.9 10^3/uL (4.3-11.0)
[2018-09-24] MEDS: PRENATAL VITAMIN 1 EA TAB PO SCH (05:53)
[2018-09-24 08:42] VITALS: BP 102/64
[2018-09-24] MEDS: DOCUSATE SODIUM 100 MG (COLACE) CAP PO SCH ×2 (08:42→20:48)
--- NOTE | 2018-09-24 08:42 | NUR ---
initial shift assessment completed, see interventions for further. and s/o @ side. appropriate bonding noted.
[2018-09-24 13:47] VITALS: BP 106/70
--- NOTE | 2018-09-24 15:06 | Anesthesia-Regional Post-Op ---
Regional Patient Condition Mental Status: Alert, Oriented x3 Circulation: Same as Pre-Op Headache: Absent Sensation: Full Recovery Motor Block: Absent Post Op Complications Complications None Follow Up Care/Instructions Patient Instructions None needed. Anesthesia/Patient Condition Patient is doing well, no complaints, stable vital signs, no apparent adverse anesthesia problems. No complications reported per nursing. ÓSCAR DENISE CRNA Sep 24, 2018 15:06
--- NOTE | 2018-09-24 19:29 | NUR ---
report given to next shift.
[2018-09-24 20:48] VITALS: BP 107/66
--- NOTE | 2018-09-24 21:04 | Progress Note ---
Subjective Subjective/Events-last exam Afebrile, no acute events, denies dizziness or shortness of breath. was difficult last night but infant is latching better this am. Objective Exam Last Set of Vital Signs Vital Signs Date Time Temp Pulse Resp B/P (MAP) Pulse Ox O2 Delivery O2 Flow Rate FiO2 09/24/18 20:48 97.4 67 18 107/66 (80) 100 Room Air 09/23/18 16:00 10.00 Capillary Refill : I&O Intake and Output 09/24/18 00:00 Intake Total 2400 ml Balance 2400 ml Intake Oral 400 ml IV Total 2000 ml # Voids 4 General: Alert, No Acute Distress Lungs: Clear to Auscultation, Normal Air Movement Heart: Regular Rate, No Murmurs Abdomen: Other (fundus firm at umbilicus) Results/Procedures Lab Laboratory Tests 09/24/18 05:15: White Blood Count 9.9, Red Blood Count 3.39L, Hemoglobin 9.4L, Hematocrit 28L, Mean Corpuscular Volume 83, Mean Corpuscular Hemoglobin 28, Mean Corpuscular Hemoglobin Concent 34, Red Cell Distribution Width 13.4, Platelet Count 146, Mean Platelet Volume 9.5, Neutrophils (%) (Auto) 78H, Lymphocytes (%) (Auto) 13, Monocytes (%) (Auto) 9, Eosinophils (%) (Auto) 0, Basophils (%) (Auto) 0, Neutrophils # (Auto) 7.7, Lymphocytes # (Auto) 1.3, Monocytes # (Auto) 0.9, Eosinophils # (Auto) 0.0, Basophils # (Auto) 0.0 Assessment/Plan Assessment/Plan (1) Spontaneous vaginal delivery Assessment & Plan: Routine care (2) anemia Assessment & Plan: Asymptomatic, start iron daily Clinical Quality Measures DVT/VTE Risk/Contraindication: Risk Factor Score Per Nursin RFS Level Per Nursing on Admit: 1=Low/No VTE PPX BIJAL SINGH MD Sep 24, 2018 21:04
[2018-09-24] MEDS ORDERED: PNV1TABL67 PO (21:07)
[2018-09-24] MEDS ORDERED: FERR325T18 PO (21:07)
[2018-09-24] MEDS ORDERED: IBUP-844 PO (21:07)
[2018-09-24] MEDS ORDERED: DOCU100C37 PO (21:07)
--- NOTE | 2018-09-24 21:09 | Discharge Instructions ---
Discharge Inst-[facility] Reconcile Patient Problems Problems Reviewed?: Yes Depart Medications New, Converted or Re-Newed RX: Transmitted to Pharmacy New Medications: Docusate Sodium (Docusate Sodium) 100 Mg Capsule 100 MG PO BID PRN for CONSTIPATION-1ST LINE, #60 CAP Ferrous Sulfate (Ferrous Sulfate) 325 Mg Tablet 325 MG PO DAILY@0700, #30 TAB 0 Refills Ibuprofen (Ibu) 600 Mg Tablet 600 MG PO Q6HR PRN for PAIN-MODERATE, #60 TAB 0 Refills Pnv with Ca,No.72/Iron/FA (Pnv Plus Multivit Tab) 1 Each Tablet 1 EA PO DAILY@0700, #30 TAB 11 Refills Follow Up/Instructions Goal/Follow Up: Follow up with Dr. Salamanca in 6 weeks for visit. Activity Activity: Activity as Tolerated (avoid strenuous activity x 6 weeks) Driving Instructions: You May Drive Nothing Inside Vagina: No Douching, No [place], No Tampons Symptoms to Report to : Swelling Increased, Fever Over 101 Degrees F, Pain/Pressure in Chest, Vaginal Bleeding Increase, Vaginal Discharge Foul, Shortness of Breath For Any Problems or Questions: Contact Your Physician BIJAL SINGH MD Sep 24, 2018 21:09
[2018-09-25 02:52] VITALS: BP 113/79
[2018-09-25] MEDS: IBUPROFEN 600 MG (MOTRIN) TAB PO SCH ×2 (02:52→09:27)
[2018-09-25] MEDS ORDERED: FERROUS SULF 325 MG (IRON) TAB PO SCH (07:00)
--- NOTE | 2018-09-25 07:00 | NUR ---
REPORT FROM MARBELLA WE[facility].
--- NOTE | 2018-09-25 07:22 | Discharge Summary ---
Diagnosis/Chief Complaint Date of Admission Sep 22, 2018 at 19:20 Date of Discharge September 25, 2018 Admission Diagnosis Admission Diagnosis Induction of labor 40 weeks gestation Discharge Diagnosis See problem list Problems/Diagnosis: (1) Spontaneous vaginal delivery Assessment & Plan: Routine care Status: Resolved (2) anemia Assessment & Plan: Asymptomatic, start iron daily Discharge Summary-Simple/Stand Discharge Physical Examination Allergies: Coded Allergies: azithromycin (Verified Allergy, Mild, Hives, 09/22/18) Vitals & I&Os Vital Sign - Last 12Hours Date Time Temp Pulse Resp B/P (MAP) Pulse Ox O2 Delivery O2 Flow Rate FiO2 09/25/18 02:52 97.5 86 18 113/79 (90) 99 Room Air 09/23/18 16:00 10.00 General Appearance: Alert, No Acute Distress Respiratory: Clear to Auscultation, Normal Air Movement Cardiovascular: Regular Rate, No Murmurs Abdominal: Other (fundus firm below umbilicus) Neuro: Normal Speech Hospital Course See final discharge diagnosis. Discharge Instructions to patient/family Please see electronic discharge instructions given to patient. Discharge Medications Reviewed and agree with Discharge Medication list on patient's Discharge Instruction sheet Clinical Quality Measures DVT/VTE Risk/Contraindication: Risk Factor Score Per Nursin RFS Level Per Nursing on Admit: 1=Low/No VTE PPX BIJAL SINGH MD Sep 25, 2018 07:22
[2018-09-25] MEDS: PRENATAL VITAMIN 1 EA TAB PO SCH (09:27)
[2018-09-25] MEDS: DOCUSATE SODIUM 100 MG (COLACE) CAP PO SCH (09:27)
--- NOTE | 2018-09-25 09:35 | NUR ---
INITIAL ASSESSMENT COMPLETED, VSS, NO DISTRESS NOTED, PT RESTING IN BED WITH S/O AT SIDE, IN OPEN CRIB. SCHEDULED MEDS GIVEN. NO C/O NOTED.
--- NOTE | 2018-09-25 09:50 | NUR ---
DR SINGH HERE NEW ORDERS RECEIVED.
[2018-09-25 13:00] VITALS: BP 112/77
--- NOTE | 2018-09-25 14:10 | NUR ---
D/C INSTRUCTIONS EXPLAINED, SIGNED, NO QUESTIONS NOTED, PLAN OF CARE UPDATED WITH PT ABOUT FOLLOW UP CARE AND INSTRUCTIONS, PT VERBALIZES UNDERSTANDING.
--- NOTE | 2018-09-25 14:43 | NUR ---
PT DISCHARGED TO HOME, AMBULATED TO PRIVATE CAR WITH S/O AT SIDE, INFANT SECURED IN REAR FACING CAR SEAT NO DISTRESS NOTED.
== END 2018-09-25 14:43 | disposition home or self-care (01) | DRG 807 ==
LOC: LDRP 19:20
PROVIDERS: ADMIT Family Medicine; ATTEND Family Medicine
PROC: 10E0XZZ Delivery of Products of Conception, External Approach (ICD-10-PCS; principal; 2018-09-23)
PROC: 0HQ9XZZ Repair Perineum Skin, External Approach (ICD-10-PCS; 2018-09-23)
PROC: 3E033VJ Introduction of Other Hormone into Peripheral Vein, Percutaneous Approach (ICD-10-PCS; 2018-09-23)
DX: O48.0 Post-term pregnancy (principal); O70.0 First degree perineal laceration during delivery; O90.81 Anemia of the puerperium; D64.9 Anemia, unspecified; Z37.0 Single live birth
CPT/HCPCS: 36415; 81000; 85025; 86850; 86900; 86901